=== PATIENT | female | born 1940 | race Asian ===

== ENCOUNTER → 2016-09-10 | Outpatient (CLI) | payer MEDICARE, OTHER ==
--- NOTE | 2016-09-10 10:25 | RADIOLOGY REPORT (SQ) ---
EXAM DESCRIPTION: U/S RETROPERITON LTD COMPLETED DATE/TIME: 09/10/2016 9:42 am REASON FOR STUDY: AAA W/O RUPTURE (I71.4) I71.4 ABDOMINAL AORTIC ANEURYSM, WITHOUT RUPTURE COMPARISON: 09/11/2015 TECHNIQUE: Static and dynamic grayscale images acquired of the aorta and stored on PACs. Selected co raymond Doppler and spectral images recorded. LIMITATIONS: Iliac arteries were obscured by bowel gas. FINDINGS: AORTIC CALIBER MAXIMAL PROXIMAL: 28 x 27 mm. MID: 27 x 27 mm. DISTAL: 37 x 41 mm. ILIAC DIAMETER RIGHT: Not seen cm. LEFT: Not seen cm. OTHER: No other significant finding. IMPRESSION: Stable abdominal aortic aneurysm. TECHNICAL DOCUMENTATION: JOB ID: [id number] [employer]- All Rights Reserved
== END ==
LOC: RAD 08:57
PROVIDERS: ATTEND Surgery
DX: I71.4 Abdominal aortic aneurysm, without rupture (principal)
CPT/HCPCS: 76775

== ENCOUNTER → 2016-11-04 | Outpatient (CLI) | payer MEDICARE, OTHER ==
--- NOTE | 2016-11-04 17:12 | WOMENS IMAGING REPORT ---
EXAM DESCRIPTION: 3D SCREENING MAMMO BILAT COMPLETED DATE/TIME: 11/04/2016 9:53 am REASON FOR STUDY: ROUTINE SCREENING; Z12.31 COMPARISON: Multiple since 2009 TECHNIQUE: Standard craniocaudal and mediolateral oblique views of each breast recorded using digita l acquisition and breast tomosynthesis. LIMITATIONS: None. FINDINGS: Findings present which are benign by mammographic criteria. No suspicious masses, calcifi cations or architectural distortion. Pertinent benign findings: Benign intramammary lymph nodes and nodules. Benign bilateral breast pare nchymal calcifications. Read with the assistance of CAD. .[facility] - R2 Cenova Version 1.3 .[facility] Imaging - R2 Cenova Version 1.3 .[facility] Imaging - R2 Cenova Version 2.4 .[facility] [place]2 Cenova Version 2.4 .[facility] - R2 Manager Of Medical Version 9.2 Benign mammographic findings may include one or more of the following: Smooth masses, popcorn/rim/co arse calcifications, asymmetries, post-procedure changes, and lesions with long-standing stability. IMPRESSION: BENIGN MAMMOGRAPHIC FINDINGS. BIRADS 2 BREAST DENSITY: c. The breasts are heterogeneously dense, which may obscure small masses. BIRAD: 2 BENIGN FINDING(S) RECOMMENDATION: RECOMMENDATION: ROUTINE SCREENING Please continue bilateral screening tomosynthesis in October 2017 COMMENT: The patient has been notified of the results by letter per SA requirements. Additional no tification policies are in place for contacting patient with suspicious or incomplete findings. Quality ID #225: The [employer] recommends an annual screening mammogram for women aged 40 years or over. This facility utilizes a reminder system to ensure that all patients receive reminder letters, and/or direct phone calls for appointments. This includes reminders for routine scr eening mammograms, diagnostic mammograms, or other Breast Imaging Interventions when appropriate. Th is patient will be placed in the appropriate reminder system. The [employer] (ACR) has developed recommendations for screening MRI of the breast s in certain patient populations, to be used in conjunction with mammography. Breast MRI surveillanc e may be appropriate for women with more than 20% lifetime risk of developing breast cancer as deter mined by genetic testing, significant family history of the disease, or history of mantle radiation f or Hodgkins Disease. ACR Practice Guidelines 2008. DBT Technology DBT is a type of tomographic mammography. With conventional mammography, overlapping breast tissue ma y make lesions difficult to detect, even with good compression. DBT uses an x-ray tube that rotates a round the breast, taking images at different angles. These images are then combined to create thin sl ices of the breast that the radiologist can view as a 3D reconstruction. The [employer] unit can perform full-field digital mammograms (2D imaging); or DBT (3D imaging); or both, in a combination mode that quickly performs both the mammogram and the tomosynthesis scan while the breast is still compressed. PQRS 6045F: Fluoroscopic imaging is not utilized for breast tomosynthesis. TECHNICAL DOCUMENTATION: FINDING NUMBER: (1) ASSESSMENT: (1) JOB ID: [id number] [employer]- All Rights Reserved
== END ==
LOC: WI 08:55
PROVIDERS: ATTEND Family Medicine
DX: Z12.31 Encounter for screening mammogram for malignant neoplasm of breast (principal)
CPT/HCPCS: 77063; G0202; 77067

== ENCOUNTER → 2017-02-08 | Outpatient (CLI) | payer MEDICARE, OTHER | LOC: OD 14:58 | PROVIDERS: ATTEND Podiatrist Foot Surgery | DX: M10.071 Idiopathic gout, right ankle and foot (principal) | CPT/HCPCS: 36415; 84550 ==

== ENCOUNTER → 2017-03-16 | Outpatient (CLI) | payer MEDICARE, OTHER ==
[2017-03-16 10:01] LABS: HEMATOCRIT 36.2 % (36.0-47.0); HEMOGLOBIN 11.7 g/dL (12.0-15.5); MEAN CORPUSCULAR HEMOGLOBIN 25.2 pg (27.0-33.4); MEAN CORPUSCULAR HGB CONC 32.3 g/dL (32.0-36.0); MEAN CORPUSCULAR VOLUME 78 fl (80-97); PLATELET COUNT 117 10^3/uL (150-450); RED BLOOD COUNT 4.63 10^6/uL (3.72-5.28); RED CELL DISTRIBUTION WIDTH 17.7 % (11.5-14.0); WHITE BLOOD COUNT 5.2 10^3/uL (4.0-10.5)
[2017-03-16 10:10] LABS: APPEARANCE,URINE CLEAR; BILIRUBIN,URINE NEGATIVE (NEGATIVE); COLOR,URINE YELLOW; GLUCOSE, URINE NEGATIVE (NEGATIVE); KETONES,URINE NEGATIVE (NEGATIVE); LEUKOCYTE ESTERASE,URINE NEGATIVE (NEGATIVE); NITRITE,URINE NEGATIVE (NEGATIVE); PROTEIN,URINE NEGATIVE (NEGATIVE); URINE SPECIFIC GRAVITY 1.014
[2017-03-16 10:28] LABS: ANION GAP 11 (5-19); BLOOD UREA NITROGEN 21 mg/dL (7-20); CALCIUM 9.9 mg/dL (8.4-10.2); CARBON DIOXIDE 28 mmol/L (22-30); CHLORIDE 105 mmol/L (98-107); GLUCOSE 123 mg/dL (75-110); MAGNESIUM 1.6 mg/dL (1.6-2.3); POTASSIUM 4.5 mmol/L (3.6-5.0); SODIUM 143.6 mmol/L (137-145)
== END ==
LOC: OD 08:55
PROVIDERS: ATTEND Internal Medicine Nephrology
DX: I10 Essential (primary) hypertension (principal); E11.9 Type 2 diabetes mellitus without complications
CPT/HCPCS: 36415; 80048; 81001; 83735; 84443; 85027

== ENCOUNTER → 2018-04-07 | Outpatient (CLI) | payer MEDICARE, OTHER ==
--- NOTE | 2018-04-07 16:10 | RADIOLOGY REPORT (SQ) ---
EXAM DESCRIPTION: U/S RETROPERITON LTD COMPLETED DATE/TIME: 04/07/2018 3:21 pm REASON FOR STUDY: AAA (I71.4), HEPATOCELLULAR CARCINOMA (C22.0), HTN (I10) I71.4 ABDOMINAL AORTIC A NEURYSM, WITHOUT RUPTURE C22.0 LIVER CELL CARCINOMA E11.9 TYPE 2 DIABETES MELLITUS WITHOUT COMPLICA TIONS COMPARISON: 09/10/2016 TECHNIQUE: Static and dynamic grayscale images acquired of the aorta and stored on PACs. Selected co raymond Doppler and spectral images recorded. LIMITATIONS: None. FINDINGS: AORTIC CALIBER MAXIMAL PROXIMAL: 2.5 x 2.8 cm. MID: 2.0 x 2.2 cm. DISTAL: 3.1 x 4.0 cm. ILIAC DIAMETER RIGHT: Not visualized. LEFT: Not visualized. OTHER: No other significant finding. IMPRESSION: 3.1 x 4 cm infrarenal abdominal aortic aneurysm. No significant change in size. COMMENT: Aortic aneurysm imaging followup: 4.0-4.4 cm Every 12 months, vascular consultation recommended *Based upon the Society for Vascular Surgery Guidelines: J Vasc Surg. 2009 Oct;50(4 Suppl):S2-49 *For aortas of maximum diameter of 2.6-2.9 cm meeting the criteria for AAA (?1.5 x proximal normal se gment) TECHNICAL DOCUMENTATION: JOB ID: [id number] [employer]- All Rights Reserved Reading location - IP/workstation name: [email or web address]
== END ==
LOC: RAD 13:17
PROVIDERS: ATTEND Internal Medicine Cardiovascular Disease
DX: I71.4 Abdominal aortic aneurysm, without rupture (principal); C22.0 Liver cell carcinoma; E11.9 Type 2 diabetes mellitus without complications; E78.49 Other hyperlipidemia
CPT/HCPCS: 76775

== ENCOUNTER → 2018-06-01 | Outpatient (CLI) | payer MEDICARE, OTHER ==
--- NOTE | 2018-06-01 12:11 | WOMENS IMAGING REPORT ---
EXAM DESCRIPTION: 3D SCREENING MAMMO BILAT COMPLETED DATE/TIME: 06/01/2018 9:39 am REASON FOR STUDY: Z12.31 ROUTINE 3D BILATERAL SCREENING Z12.31 ENCNTR SCREEN MAMMOGRAM FOR MALIGNAN T NEOPLASM OF CASSIE COMPARISON: [id number] TECHNIQUE: Standard craniocaudal and mediolateral oblique views of each breast recorded using digita l acquisition and breast tomosynthesis. LIMITATIONS: None. FINDINGS: No masses, calcifications or architectural distortion. No areas of suspicion. Read with the assistance of CAD. .[facility] - R2 Cenova Version 1.3 .[facility] Imaging - R2 Cenova Version 2.1 .[facility] Imaging - R2 Cenova Version 2.4 .[facility] [place] Cenova Version 2.4 .[facility] - R2 Otolaryngology Nurse Version 9.2 IMPRESSION: NORMAL MAMMOGRAM. BIRADS 1. BREAST DENSITY: b. There are scattered areas of fibroglandular density. BIRAD: 1 NEGATIVE RECOMMENDATION: ROUTINE SCREENING COMMENT: The patient has been notified of the results by letter per SA requirements. Additional no tification policies are in place for contacting patient with suspicious or incomplete findings. Quality ID #225: The [employer] recommends an annual screening mammogram for women aged 40 years or over. This facility utilizes a reminder system to ensure that all patients receive reminder letters, and/or direct phone calls for appointments. This includes reminders for routine scr eening mammograms, diagnostic mammograms, or other Breast Imaging Interventions when appropriate. Th is patient will be placed in the appropriate reminder system. The [employer] (ACR) has developed recommendations for screening MRI of the breast s in certain patient populations, to be used in conjunction with mammography. Breast MRI surveillanc e may be appropriate for women with more than 20% lifetime risk of developing breast cancer as deter mined by genetic testing, significant family history of the disease, or history of mantle radiation f or Hodgkins Disease. ACR Practice Guidelines 2008. DBT Technology DBT is a type of tomographic mammography. With conventional mammography, overlapping breast tissue ma y make lesions difficult to detect, even with good compression. DBT uses an x-ray tube that rotates a round the breast, taking images at different angles. These images are then combined to create thin sl ices of the breast that the radiologist can view as a 3D reconstruction. The [employer] unit can perform full-field digital mammograms (2D imaging); or DBT (3D imaging); or both, in a combination mode that quickly performs both the mammogram and the tomosynthesis scan while the breast is still compressed. PQRS 6045F: Fluoroscopic imaging is not utilized for breast tomosynthesis. TECHNICAL DOCUMENTATION: FINDING NUMBER: (1) ASSESSMENT: (1) JOB ID: [id number] [employer]- All Rights Reserved Reading location - IP/workstation name: [email or web address] LOAN OFFICER [email or web address]
== END ==
LOC: WI 09:18
PROVIDERS: ATTEND Family Medicine
DX: Z12.31 Encounter for screening mammogram for malignant neoplasm of breast (principal)
CPT/HCPCS: 77063; 77067

== ENCOUNTER → 2018-09-08 | Outpatient (CLI) | payer MEDICARE, OTHER ==
--- NOTE | 2018-09-08 11:13 | RADIOLOGY REPORT (SQ) ---
EXAM DESCRIPTION: U/S RETROPERITON LTD COMPLETED DATE/TIME: 09/08/2018 10:44 am REASON FOR STUDY: AAA I71.4 ABDOMINAL AORTIC ANEURYSM, WITHOUT RUPTURE COMPARISON: 04/07/2018 TECHNIQUE: Static and dynamic grayscale images acquired of the aorta and stored on PACs. Selected co raymond Doppler and spectral images recorded. LIMITATIONS: None. FINDINGS: AORTIC CALIBER MAXIMAL PROXIMAL: 2.9 x 2.2 cm. MID: 2.3 x 2.0 cm. DISTAL: 3.6 x 4.0 cm. ILIAC DIAMETER RIGHT: Not visualized. LEFT: Not visualized. OTHER: No other significant finding. IMPRESSION: 3.6 x 4.0 cm infrarenal abdominal aortic aneurysm. There is been a slight increase in s ize since prior ultrasound although this could represent sampling difference. COMMENT: Aortic aneurysm imaging followup: 4.0-4.4 cm Every 12 months, vascular consultation recommended *Based upon the Society for Vascular Surgery Guidelines: J Vasc Surg. 2009 Oct;50(4 Suppl):S2-49 *For aortas of maximum diameter of 2.6-2.9 cm meeting the criteria for AAA (?1.5 x proximal normal se gment) TECHNICAL DOCUMENTATION: JOB ID: [id number] [employer]- All Rights Reserved Reading location - IP/workstation name: [email or web address]
== END ==
LOC: RAD 09:35
PROVIDERS: ATTEND Surgery
DX: I71.4 Abdominal aortic aneurysm, without rupture (principal)
CPT/HCPCS: 76775

== ENCOUNTER → 2019-09-13 | Outpatient (CLI) | payer MEDICARE, OTHER ==
--- NOTE | 2019-09-13 11:43 | RADIOLOGY REPORT (SQ) ---
EXAM DESCRIPTION: U/S RETROPERITON LTD IMAGES COMPLETED DATE/TIME: 09/13/2019 10:09 am REASON FOR STUDY: I71.4 ABDOMINAL AORTIC ANEURYSM, WITHOUT RUPTURE I71.4 ABDOMINAL AORTIC ANEURYSM, WITHOUT RUPTURE COMPARISON: 09/08/2018 TECHNIQUE: Static and dynamic grayscale images acquired of the aorta and stored on PACs. Selected co raymond Doppler and spectral images recorded. LIMITATIONS: None. FINDINGS: AORTIC CALIBER MAXIMAL PROXIMAL: 2.5 x 2.7 cm. MID: 3.6 x 4.0 cm. DISTAL: 3.5 x 3.5 cm. ILIAC DIAMETER RIGHT: Nonvisualized due to body habitus. LEFT: Nonvisualized due to body habitus. OTHER: No other significant finding. IMPRESSION: Mid abdominal aortic aneurysm measuring up to 4.0 cm, stable. Follow-up as below. COMMENT: Aortic aneurysm imaging followup: 4.0-4.4 cm Every 12 months, vascular consultation recommended *Based upon the Society for Vascular Surgery Guidelines: J Vasc Surg. 2009 Oct;50(4 Suppl):S2-49 *For aortas of maximum diameter of 2.6-2.9 cm meeting the criteria for AAA (?1.5 x proximal normal se gment) TECHNICAL DOCUMENTATION: JOB ID: [id number] 2010 [employer]- All Rights Reserved Reading location - IP/workstation name: [email or web address]
== END ==
LOC: RAD 08:57
PROVIDERS: ATTEND Surgery
DX: I71.4 Abdominal aortic aneurysm, without rupture (principal)
CPT/HCPCS: 76775

== ENCOUNTER 2020-02-14 21:49 | Inpatient (IN) | payer MEDICARE, OTHER ==
[2020-02-14 22:19] LABS: ABSOLUTE LYMPHOCYTES (AUTO) 0.3 10^3/uL (0.5-4.7); ABSOLUTE NEUT (AUTO) 3.1 10^3/uL (1.7-8.2); BASOPHILS % (AUTO) 0.5 % (0-2); EOSINOPHILS % (AUTO) 0.8 % (0-6); HEMOGLOBIN 11.2 g/dL (12.0-15.5); INTERNATIONAL RATION (INR) 1.13; MEAN CORPUSCULAR HEMOGLOBIN 30.3 pg (27.0-33.4); MEAN CORPUSCULAR HGB CONC 32.9 g/dL (32.0-36.0); MEAN CORPUSCULAR VOLUME 92 fl (80-97); MONOCYTES % (AUTO) 1.1 % (3-13); PROTHROMBIN TIME 14.8 SEC (11.4-15.4); RED CELL DISTRIBUTION WIDTH 18.2 % (11.5-14.0); SEGMENTED NEUTROPHILS % (AUTO) 88.6 % (42-78); TOTAL CELLS COUNTED % (AUTO) 100 %; WHITE BLOOD COUNT 3.5 10^3/uL (4.0-10.5)
[2020-02-14 22:23] LABS: VENOUS BLOOD BASE EXCESS -1.9 mmol/L; VENOUS BLOOD PH 7.34 (7.30-7.42)
[2020-02-14 22:30] LABS: ALBUMIN 3.8 g/dL (3.5-5.0); ALKALINE PHOSPHATASE 139 U/L (38-126); ANION GAP 8 (5-19); ASPARTATE AMINO TRANSFERASE 26 U/L (14-36); BILIRUBIN,DIRECT 0.2 mg/dL (0.0-0.4); BILIRUBIN,TOTAL 0.9 mg/dL (0.2-1.3); BLOOD UREA NITROGEN 16 mg/dL (7-20); CALCIUM 9.1 mg/dL (8.4-10.2); CARBON DIOXIDE 28 mmol/L (22-30); CHLORIDE 101 mmol/L (98-107); GLUCOSE 178 mg/dL (75-110); POTASSIUM 3.7 mmol/L (3.6-5.0); TOTAL PROTEIN 7.3 g/dL (6.3-8.2)
[2020-02-14 22:45] LABS: PLATELET COUNT 54 10^3/uL (150-450)
[2020-02-14] MEDS ORDERED: AZITHROMYCIN INJ 500 MG VIAL IV ONE (22:51)
--- NOTE | 2020-02-14 22:53 | ER Document Report ---
ED Respiratory Problem <HENNASOFY - Last Filed: 02/15/20 11:33> - General TRAVEL OUTSIDE OF THE [place] IN LAST 30 DAYS: No <JAQUELINE MARTIN - Last Filed: 02/16/20 16:23> - General Chief Complaint: Shortness Of Breath Stated Complaint: SHORTNESS OF BREATH Time Seen by Provider: 02/14/20 22:08 Notes: Patient is an 79-year-old female who presents to the emergency department with shortness of breath. Patient's was available for history. Patient started to have shortness of breath today. Patient's also reports that the patient had some chills today. Patient has history of COPD and wears 5 L nasal cannula. EMS arrived and the patient had an oxygen saturation in the 50s. Has been reports that the patient was admitted to [facility] last month. She was just tested for COVID-19, which was negative. She then was subsequently transferred to [facility] for further management. Patient is currently on BiPAP. reports that the patient does not want to have a breathing tube placed down her throat, but if she needs CPR, the patient may receive CPR. Of note, the patient is hard of hearing. She wears hearing aids. (JAQUELINE MARTIN) - Related Data Allergies/Adverse Reactions: gabapentin Adverse Reaction (Verified 02/14/20 22:46) Past Medical History - General Information source: Relative - Social History Smoking Status: Former Smoker Frequency of alcohol use: None Drug Abuse: None Family History: Reviewed & Not Pertinent <JAQUELINE MARTIN - Last Filed: 02/16/20 16:23> Review of Systems - Review of Systems -: Yes ROS unobtainable due to patient's medical condition <JAQUELINE MARTIN - Last Filed: 02/16/20 16:23> Physical Exam <JAQUELINE MARTIN - Last Filed: 02/16/20 16:23> - Vital signs Vitals: Temp Pulse Resp BP Pulse Ox 99.9 F 133 H 29 H 118/69 92 02/14/20 21:49 02/14/20 21:49 02/14/20 21:49 02/14/20 21:49 02/14/20 21:49 - Notes Notes: PHYSICAL EXAMINATION: GENERAL: Appears well, healthy, well-nourished, no acute distress. HEAD: Normocephalic, atraumatic. EYES: PERRL, conjunctiva normal, all extraocular movements intact, sclera nonicteric ENT: Moist mucous membranes. NECK: Supple, no noticeable swelling, redness, rash. Normal range of motion. LUNGS: Equal breath sounds bilaterally and clear to auscultation. No wheezes rales or rhonchi. CARDIOVASCULAR: S1-S2, regular rate, regular rhythm. Radial pulses 2+, normal. ABDOMEN: Normoactive bowel sounds. Soft, nontender, no guarding, no rebound tenderness, and no masses palpated. EXTREMITIES: Normal strength and range of motion, no pitting or edema. No cyanosis. NEUROLOGICAL: Moves all extremities upon command. Strength 5/5 in all extremities. PSYCH: Normal mood, normal affect. SKIN: Warm, dry. No rash, lesions, ulcerations noted. Normal skin turgor. (JAQUELINE MARTIN) Course - Laboratory Results Result Diagrams: 02/14/20 21:55 02/14/20 21:55 <SOFY AGUILLON - Last Filed: 02/15/20 11:33> - Laboratory Results Result Diagrams: 02/16/20 06:09 02/16/20 06:09 Critical Laboratory Results Reviewed: No Critical Results - Radiology Results Critical Radiology Results Reviewed: No Critical Results <JAQUELINE MARTIN - Last Filed: 02/16/20 16:23> - Re-evaluation Re-evalutation: 02/15/20 03:34 Dr. Rabago, the radiologist called me and recommended a CT of the abdomen pelvis with IV contrast, as there was a possible fluid collection or abscess on the CT a of the chest. He is recommending patient go for another CT of the abdomen pelvis with IV contrast. There is no pulmonary emboli noted. I then spoke with Dr. Carr for possible admission. 02/15/20 05:31 Spoke with [facility] transfer center, the patient now has an NSTEMI. Awaiting callback from the hospitalist. 02/15/20 05:57 Dr. Elias, the hospitalist at [facility]. At this time, they are on regional management. They state that they cannot take the patient at this time, but recommend follow-up with the sales promotion representative here. She reports that the imaging study that was done there a month ago showed gallbladder sludge and emphysema cholecystitis, which was also found here. 02/15/20 06:[address] Garcia, the sales promotion representative educational psychology teacher. He states that since the patient is not having chest pain, the elevated troponin is most likely due to her cholecystitis. Will call daytime hospitalist for admission. Throughout the night, have called multiple facilities for other patients and other facilities are currently on regional management. 02/15/20 07:[address] Mitchell, hospitalist. He is concerned about the patient's cholecystitis and with the plan is for the patient. He would like me to call the on-call GI or general surgery physician at [facility] to see what the plan is. 02/15/20 08:08 I called [facility] transfer center. They will call the team that was covering the patient's case. Will await callback from them. 02/15/20 08:29 Dr. Viola Velázquez, Hospitalist from [facility]. The surgical team did not deem the patient a surgical candidate due to her age and co-morbidities. Perc otto was done in August. 02/15/20 09:[address] Villatoro, he states that the patient is not a surgical candidate, but he will evaluate the patient. I also spoke with Dr. Mitchell, the hospitalist doctor. He will evaluate the patient and based off of their assessments, they will speak with TERA Arreola in regards to what the disposition will be for the patient. Report given to TERA Arreola. ([facility] ) - Vital Signs Vital signs: Temp Pulse Resp BP Pulse Ox 98.7 F 95 17 120/51 L 98 02/16/20 11:42 02/16/20 14:00 02/16/20 11:42 02/16/20 11:42 02/16/20 11:42 - Laboratory Results Laboratory Results Interpreted: 02/14/20 02/14/20 02/14/20 21:55 21:55 21:55 WBC 3.5 L RBC 3.70 L Hgb 11.2 L Hct 34.0 L RDW 18.2 H Plt Count 54 L Lymph % (Auto) 9.0 L Ferry % (Auto) 1.1 L Absolute Lymphs (auto) 0.3 L Absolute Monos (auto) 0.0 L Seg Neutrophils % 88.6 H Sodium 136.8 L Glucose 178 H Lactic Acid 2.9 H Alkaline Phosphatase 139 H NT-Pro-B Natriuret Pep 02/15/20 02/15/20 04:22 04:22 WBC RBC Hgb Hct RDW Plt Count Lymph % (Auto) Ferry % (Auto) Absolute Lymphs (auto) Absolute Monos (auto) Seg Neutrophils % Sodium Glucose Lactic Acid 2.4 H Alkaline Phosphatase NT-Pro-B Natriuret Pep 756 H - EKG Interpretation by Me Additional EKG results interpreted by me: 02/14/20 Sinus tachycardia. Rate 133. SD 144; QRS 74; QT 288; QTc 429. No ST elevations or depressions noted. Previous EKG for comparison. (JAQUELINE MARTIN) Discharge - Discharge Admitting Provider: Paula (Hospitalist) Unit Admitted: IMCU <SOFY AGUILLON - Last Filed: 02/15/20 11:33> <JAQUELINE MARTIN - Last Filed: 02/16/20 16:23> - Discharge Clinical Impression: NSTEMI (non-ST elevated myocardial infarction), Cholecystitis Condition: Stable Disposition: ADMITTED INPATIENT
[2020-02-14 22:58] LABS: APPEARANCE,URINE CLEAR; BILIRUBIN,URINE NEGATIVE (NEGATIVE); COLOR,URINE STRAW; GLUCOSE, URINE NEGATIVE (NEGATIVE); KETONES,URINE NEGATIVE (NEGATIVE); PROTEIN,URINE NEGATIVE (NEGATIVE); URINE SPECIFIC GRAVITY 1.013; UROBILINOGEN,URINE NEGATIVE mg/dL (<2.0)
[2020-02-14] MEDS ORDERED: CEFTRIAXONE 1 GM/D5W RTU 1 GM/50 ML RTUPB IV ONE (23:00)
--- NOTE | 2020-02-14 23:05 | RADIOLOGY REPORT (SQ) ---
CHEST X-RAY 1 VIEW on 02/14/2020 at 10:20 PM CLINICAL INDICATION: Shortness of breath COMPARISON: None FINDINGS: Cardiomegaly is noted. There is a small right pleural effusion. There are bilateral interstitial opacities consistent with edema or atypical pneumonia and differential diagnosis would include viral infections. This may be superimposed on chronic interstitial changes. Vascular calcification is noted in the aorta. Hilar and mediastinal contours are within normal limits. IMPRESSION: Bilateral interstitial opacities consistent with edema or atypical pneumonia with small right pleural effusion.
[2020-02-14 23:40] LABS: ARTERIAL BLOOD BASE EXCESS -1.6 mmol/L; ARTERIAL BLOOD FIO2 30%; ARTERIAL BLOOD H2CO3 1.06 mmol/L (1.05-1.35); ARTERIAL BLOOD HCO3 22.4 mmol/L (20-24); ARTERIAL BLOOD O2 SATURATION 96.6 % (94-98); ARTERIAL BLOOD PCO2 35.3 mmHg (35-45); ARTERIAL BLOOD PH 7.42 (7.35-7.45); ARTERIAL BLOOD PO2 84.7 mmHg (80-100); ARTERIAL BLOOD TOTAL CO2 23.5 mmol/L (21-25)
--- NOTE | 2020-02-15 02:44 | RADIOLOGY REPORT (SQ) ---
CT angiogram chest with contrast on 02/15/2020 at 1:53 AM CLINICAL INDICATION: Shortness of breath TECHNIQUE: Multiple axial images are obtained throughout the chest following the administration of IV contrast. Computer generated 3D reconstructions/MIPS were performed. This exam was performed according to our departmental dose-optimization program, which includes automated exposure control, adjustment of the mA and/or kV according to patient size and/or use of iterative reconstruction technique. Total DLP is 722.11 mGy*cm. COMPARISON: None FINDINGS: Coronary artery calcifications and other vascular calcifications are noted. There is no thoracic aortic aneurysm or dissection. There are a few scattered radiopaque densities in the liver, please correlate with history if the patient has history of any prior embolization procedure. Pneumobilia is noted. There is partially imaged apparent abnormal gallbladder with mucosal enhancement and gallbladder wall thickening. There is also partially imaged air and fluid collection along the caudate lobe of the liver. This could be a loop of bowel in an unusual position but cannot exclude partially imaged abscess. Would recommend follow-up CT of the abdomen and pelvis with contrast to better evaluate the upper abdomen. There is a slightly irregular contour of the liver suggesting changes of cirrhosis. Mild splenomegaly is noted with the spleen measuring at least 15.3 cm in greatest [id number] length. Limited visualized upper abdomen is otherwise unremarkable. There is a small right pleural effusion. There is no left pleural effusion or pericardial effusion. There is no thoracic adenopathy by CT size criteria. There are no filling defects within the pulmonary arteries to suggest pulmonary embolus. Emphysematous changes of the lungs are noted. There is some bronchiectasis in the lung bases. There are reticular interstitial opacities in the lung bases that may all be related to chronic underlying interstitial lung disease although be difficult to exclude component of superimposed mild edema. Degenerative changes are noted in the spine. IMPRESSION: 1. No evidence of pulmonary embolus. 2. Very small right pleural effusion with findings favored to represent chronic underlying interstitial lung disease in the lung bases although cannot exclude component of mild edema. 3. Emphysema. 4. Changes of cirrhosis and splenomegaly partially imaged in the upper abdomen. 5. Abnormal appearance of a partially imaged gallbladder, consider ultrasound follow-up. 6. Partially imaged air and fluid collection along the caudate lobe of the liver. While this could represent a loop of bowel in an unusual location, abscess is of concern. Would recommend follow-up CT of the abdomen and pelvis ideally with contrast to better evaluate.
--- NOTE | 2020-02-15 05:06 | RADIOLOGY REPORT (SQ) ---
EXAM DESCRIPTION: Site: CT ABD/PELVIS WITH IV ONLY RP: CT ABDOMEN PELVIS WITH IV CONTRAST 02/15/2020 at 0402 CLINICAL HISTORY: 79 years Female; follow up on possible fluid collection; (CT chest 02/15/2020) TECHNIQUE: CT of the abdomen and pelvis using intravenous contrast. All CT scans at this facility use dose modulation, iterative reconstruction, and/or weight based dosing when appropriate to reduce radiation dose to as low as reasonably achievable. COMPARISON: CT chest 02/15/2020 at 0152. FINDINGS: Lung bases are similar to exam performed earlier. Abdomen: Stomach: No significant distention or surrounding edema. There is a 4 cm wide duodenal diverticulum projecting from the junction of the 2nd and 3rd portions. No adjacent edema. Fluid and air in the duodenum corresponds to the collection partially visualized on the CT. Liver:No focal lesions. No intrahepatic ductal distention. Gallbladder: There is air in the fundus of the gallbladder, mild wall enhancement and thickening. Pancreas:Within normal limits Spleen:Within normal limits Right kidney:No hydronephrosis. No focal lesion. Left kidney: No hydronephrosis. 2.5 cm exophytic cyst. Adrenal glands:Within normal limits Vascular structures: Abdominal aortic aneurysm 4 cm AP by 3.8 cm LR involving a 5.2 cm long segment of the distal abdominal aorta. There is also extensive calcific and low-density plaque throughout the aorta and in multiple branches. No major branch occlusion. Multiple portosystemic varices are noted. No portal vein thrombosis. Pelvis: Small bowel:No significant distention. Appendix:Within normal limits Colon:No distention or acute pericolonic edema. No free intraperitoneal fluid or air. Bones: Chronic degenerative changes of the lumbar spine. No acute bone findings. Bladder: Lowry catheter is in place. No pelvic mass or adenopathy. IMPRESSION: 1. Abnormal gallbladder, suspicious for acute cholecystitis. The air raises concern for emphysematous cholecystitis. 2. Large duodenal diverticulum, but no associated acute inflammatory changes. (Questionable fluid collection on CTA chest corresponds to fluid in the duodenum) 3. Varices, consistent with portal hypertension 4. 4 cm distal abdominal aortic aneurysm. Recommend follow-up every 12 months and vascular consultation.
[2020-02-15] MEDS ORDERED: ONDANSETRON HCL INJ/PF 4 MG/2 ML SDV IV PRN (11:19)
[2020-02-15] MEDS ORDERED: MAG HYDROX/AL HYDROX/SIMETH SUSP 30 ML UDCUP PO PRN (11:19)
[2020-02-15] MEDS ORDERED: FUROSEMIDE INJ/PF 40 MG/4 ML SDV IV ONE (11:23)
[2020-02-15] MEDS ORDERED: METHYLPREDNISOLONE INJ 40 MG/1 ML SDV IV ONE (11:23)
[2020-02-15] MEDS ORDERED: LIDOCAINE 5% (700 MG) TRANSDERMAL ADH..PATCH TP PRN (11:24)
[2020-02-15] MEDS ORDERED: (PENDING PHARMACY ID) (Diclofenac Sodium [Diclofenac Sodium] 100 GM Gel..Gram.) TOP PRN (11:24)
[2020-02-15] MEDS ORDERED: MECLIZINE HCL 25 MG TABLET PO PRN (11:24)
[2020-02-15] MEDS ORDERED: ACETAMINOPHEN 325 MG TABLET PO PRN (12:28)
[2020-02-15] MEDS ORDERED: DEXTROSE 50%-WATER 25 GM/50 ML DISP.SYRIN IV PRN ×2 (13:05)
[2020-02-15] MEDS ORDERED: GLUCAGON,HUMAN RECOMB 1 MG INJ SUBCUT PRN (13:05)
[2020-02-15] MEDS ORDERED: DEXTROSE 40% GEL 15 GM TUBE PO PRN ×2 (13:05)
[2020-02-15] MEDS ORDERED: DEXTROSE 5%-NORMAL SALINE 1,000 ML IV PRN (13:06)
--- NOTE | 2020-02-15 13:16 | PDOC CONSULTATION ---
Consultation Consult Date: 02/15/20 Provider Consulted: JASPAL WELSH Consult reason:: Gallbladder abnormality History of Present Illness Admission Date/PCP: 02/15/20 12:35 EMMA DAY Patient complains of: Patient initially presented to the ER with shortness of breath. History of Present Illness: NOLVIA SCRUGGS is a 79 year old female with multiple medical issues including significant pulmonary and cardiac problems that the family has been told adamantly that she cannot undergo any type of surgical procedure. Patient apparently had a fall on the right side and was hospitalized at [facility] and was noted at that time with a gallbladder abnormality with thickened gallbladder wall with air but they did not feel that it was an acute process and no intervention was performed at that time although she did have a presenting fevers. History is very difficult to obtain from her and I was able to obtain history with her at the bedside. It does appear that she has been experiencing right-sided abdominal discomfort. She has been eating with no emesis and she has not been experiencing fevers. She has a history of hepatocellular carcinoma in the past. Social History Smoking Status: Former Smoker Frequency of Alcohol Use: None Hx Recreational Drug Use: No Hx Prescription Drug Abuse: No Family History Parental Family History Reviewed: No Children Family History Reviewed: No Sibling(s) Family History Reviewed.: No Medication/Allergy Home Medications: Arformoterol Tartrate [Brovana Inhalation Solution 15 mcg/2 mL] 15 mcg NEB RTBID 02/15/20 Budesonide [Pulmicort] 0.5 mg NEB RTBID 02/15/20 Calcium Citrate/Vitamin D3 [Citracal-D3 200Mg-250 Unit Tab] 1 tab PO DAILY 02/15/20 Cholecalciferol (Vitamin D3) [Vitamin D3 1000 Unit Tablet] 1,000 units PO DAILY 02/15/20 Cyanocobalamin (Vitamin B-12) [Vitamin B12] 2,500 mcg PO DAILY 02/15/20 Diclofenac Sodium 2 gr TOP TIDP PRN 02/15/20 Ferrous Sulfate [Ferosul] 325 mg PO DAILY 02/15/20 Fluocinonide [Lidex-E 0.05% Cream 15 gm] 1 applic TOP BIDP PRN 02/15/20 Fluticasone/Umeclidin/Vilanter [Trelegy 100-62.5-25 Mcg Ellipta 14 Dose/Dpi] 1 puff IH DAILY 02/15/20 Latanoprost [Xalatan 0.005% Oph Soln 2.5 ml] 1 drop OU QHS 02/15/20 Lidocaine [Lidoderm 5% (700 mg) Transdermal Patch] 1 patch TD Q12HP PRN 02/15/20 Meclizine HCl 12.5 mg PO Q6HP PRN 02/15/20 Pantoprazole Sodium [Protonix] 40 mg PO DAILY 02/15/20 Prednisone 10 mg PO DAILY 02/15/20 Simvastatin [Zocor 40 mg Tablet] 40 mg PO QHS 02/15/20 Allergies/Adverse Reactions: gabapentin Adverse Reaction (Verified 02/14/20 22:46) Physical Exam Vital Signs: Temp Pulse Resp BP Pulse Ox 99.4 F 133 H 24 H 124/64 96 02/15/20 03:30 02/14/20 21:49 02/15/20 07:30 02/15/20 07:30 02/15/20 07:30 Intake & Output 02/14/20 02/15/20 02/16/20 06:59 06:59 06:59 Intake Total 300 Output Total 1100 Balance 300 -1100 Weight 89.1 kg General appearance: PRESENT: no acute distress, cooperative - But really unable to provide a detailed history. Eye exam: PRESENT: conjunctiva pink Respiratory exam: PRESENT: clear to auscultation laney Cardiovascular exam: PRESENT: RRR GI/Abdominal exam: PRESENT: other - Soft, obese, focal tenderness to palpation in the right upper quadrant in the subcostal region without peritoneal signs. She has no tenderness at her ribs nor her flank nor at her right lateral abdomen and there are no bruising nor evidence of trauma in this area. Neurological exam: PRESENT: awake Results Laboratory Results: 02/14/20 21:55 02/14/20 21:55 02/14/20 02/14/20 02/14/20 21:55 21:55 21:55 WBC 3.5 L RBC 3.70 L Hgb 11.2 L Hct 34.0 L MCV 92 MCH 30.3 MCHC 32.9 RDW 18.2 H Plt Count 54 L Seg Neutrophils % 88.6 H Carbonic Acid HCO3/H2CO3 Ratio ABG pH ABG pCO2 ABG pO2 ABG HCO3 ABG O2 Saturation ABG Base Excess VBG pH 7.34 VBG pCO2 46.0 VBG HCO3 24.0 VBG Base Excess -1.9 FiO2 Sodium 136.8 L Potassium 3.7 Chloride 101 Carbon Dioxide 28 Anion Gap 8 BUN 16 Creatinine 0.86 Est GFR ( Amer) > 60 Glucose 178 H Lactic Acid Calcium 9.1 Total Bilirubin 0.9 AST 26 Alkaline Phosphatase 139 H Total Protein 7.3 Albumin 3.8 Urine Color Urine Appearance Urine pH Ur Specific [place] Urine Protein Urine Glucose (UA) Urine Ketones Urine Blood Urine RBC (Auto) 02/14/20 02/14/20 02/14/20 21:55 22:38 23:27 WBC RBC Hgb Hct MCV MCH MCHC RDW Plt Count Seg Neutrophils % Carbonic Acid 1.06 HCO3/H2CO3 Ratio 21:1 ABG pH 7.42 ABG pCO2 35.3 ABG pO2 84.7 ABG HCO3 22.4 ABG O2 Saturation 96.6 ABG Base Excess -1.6 VBG pH VBG pCO2 VBG HCO3 VBG Base Excess FiO2 30% Sodium Potassium Chloride Carbon Dioxide Anion Gap BUN Creatinine Est GFR ( Amer) Glucose Lactic Acid 2.9 H Calcium Total Bilirubin AST Alkaline Phosphatase Total Protein Albumin Urine Color STRAW Urine Appearance CLEAR Urine pH 5.0 Ur Specific [place] 1.013 Urine Protein NEGATIVE Urine Glucose (UA) NEGATIVE Urine Ketones NEGATIVE Urine Blood NEGATIVE Urine RBC (Auto) 1 02/15/20 02/15/20 04:22 07:44 WBC RBC Hgb Hct MCV MCH MCHC RDW Plt Count Seg Neutrophils % Carbonic Acid HCO3/H2CO3 Ratio ABG pH ABG pCO2 ABG pO2 ABG HCO3 ABG O2 Saturation ABG Base Excess VBG pH VBG pCO2 VBG HCO3 VBG Base Excess FiO2 Sodium Potassium Chloride Carbon Dioxide Anion Gap BUN Creatinine Est GFR ( Amer) Glucose Lactic Acid 2.4 H 2.1 Calcium Total Bilirubin AST Alkaline Phosphatase Total Protein Albumin Urine Color Urine Appearance Urine pH Ur Specific [place] Urine Protein Urine Glucose (UA) Urine Ketones Urine Blood Urine RBC (Auto) 02/14/20 23:06 Blood Blood Culture (PCR) - Final Escherichia Coli 02/14/20 02/15/20 02/15/20 21:55 04:22 04:22 Troponin I 0.019 0.203 NT-Pro-B Natriuret Pep 756 H 02/15/20 08:55 Troponin I 0.174 NT-Pro-B Natriuret Pep Impressions: Chest X-Ray 02/14/20 22:03 IMPRESSION: Bilateral interstitial opacities consistent with edema or atypical pneumonia with small right pleural effusion. Chest/Abdomen CTA 02/15/20 00:23 IMPRESSION: 1. No evidence of pulmonary embolus. 2. Very small right pleural effusion with findings favored to represent chronic underlying interstitial lung disease in the lung bases although cannot exclude component of mild edema. 3. Emphysema. 4. Changes of cirrhosis and splenomegaly partially imaged in the upper abdomen. 5. Abnormal appearance of a partially imaged gallbladder, consider ultrasound follow-up. 6. Partially imaged air and fluid collection along the caudate lobe of the liver. While this could represent a loop of bowel in an unusual location, abscess is of concern. Would recommend follow-up CT of the abdomen and pelvis ideally with contrast to better evaluate. Abdomen/Pelvis CT 02/15/20 03:27 IMPRESSION: 1. Abnormal gallbladder, suspicious for acute cholecystitis. The air raises concern for emphysematous cholecystitis. 2. Large duodenal diverticulum, but no associated acute inflammatory changes. (Questionable fluid collection on CTA chest corresponds to fluid in the duodenum) 3. Varices, consistent with portal hypertension 4. 4 cm distal abdominal aortic aneurysm. Recommend follow-up every 12 months and vascular consultation. Assessment & Plan - Diagnosis (1) Cholecystitis Is this a current diagnosis for this admission?: Yes Plan: I agree with [facility]'s assessment that this gallbladder process is chronic; however, she is symptomatic and and she has focal tenderness in this area along with positive blood culture for E. coli. In light of these findings, I feel strongly that an intervention is indicated. Since she is not a surgical candidate as vehemently stated by her , will have radiology place a cholecystostomy tube. She had one last year for similar sounding gallbladder i ssues. Although it would be ideal for her to have continuity of care at [facility], they are not accepting any patients as transfer. After she has stabilized from her cholecystostomy tube and antibiotic treatment for her bacteremia, patient could potentially be discharged to home with follow-up at [facility]. Patient will be admitted to the hospitalist service with surgery service following along. I will discuss with radiology about the cholecystostomy tube placement. I have had a discussion with patient and her about the procedure and they are well familiar with the procedure and agrees to proceed. They understand that there is risk of bleeding and damage to adjacent structures with the tube placement.
[2020-02-15] MEDS ORDERED: FLUOCINONIDE 0.05% CREAM 15 GM TOP PRN (14:00)
--- NOTE | 2020-02-15 17:27 | PDOC H&P ---
History of Present Illness Admission Date/PCP: 02/15/20 12:35 CRI[address] MCKEON, [facility]- Patient complains of: Chills, abdominal pain, shortness of breath History of Present Illness: I had a very extensive conversation with patient and patient's at bedside. NOLVIA SCRUGGS is a 79 year old female with extensive medical history including hepatocellular cancer [undergoing CyberKnife procedures], cholecystitis last year, emphysema on home oxygen, who presents to the hospital for evaluation of chills shortness of breath. Patient started having the symptoms yesterday. She was noted by her to be hypoxic in the 70s to 80s on her nasal cannula. She was subsequently brought to the hospital. Her noted her having some rash on her thighs yesterday but seems to be gone this morning. Patient complained of some shortness of breath involving and pointed to her neck. In the ambulance, patient received mag, Solu-Medrol and placed on CPAP. In the ER, patient received antibiotics patient underwent imaging which revealed emphysematous cholecystitis. Notably she was on about 1.5 to 2 L nasal cannula during my encounter and stated that her shortness of breath had improved significantly. Has had multiple covid tests in past 2 months all negative last 3 weeks ago. Regarding her emphysematous cholecystitis, patient is having abdominal pain as well as chills. Last year, patient was noted to be having cholecystitis at [facility]. At that time, the try to take out her gallbladder but she had an episode on the surgical table as a result of which the cholecystectomy was forfieted. She subsequently underwent cholecystostomy tube placement and biliary stenting. These were later removed. However she never underwent cholecystectomy. Patient was seen in [facility] last month and was given antibiotics for several days. It is unclear what she was actually treated for with antibiotics but he did also note that she was later treated for C. difficile. They did several imaging and referred patient to [facility] for follow-up. At [facility] last month, they treated her for other issues but also noted her cholecystitis on imaging. tells me that they had considered placing a tube then but decided to hold off due to lack of symptoms. The also expresses to me that the family told him that patient was not a surgical lester te for cholecystectomy due to her comorbid medical/lung issues as well as thrombocytopenia. Past Medical History Cardiac Medical History: Denies: Atrial Fibrillation, Coronary Artery Disease Pulmonary Medical History: Reports: Chronic Obstructive Pulmonary Disease (COPD), Pneumonia Malignancy Medical History: Reports: Liver Cancer Psychiatric Medical History: Denies: Depression Past Surgical History Past Surgical History: Reports: Other - cyberknife procedure to liver Denies: Coronary Artery Bypass Graft Social History Smoking Status: Former Smoker Electronic Cigarette use?: No Last Time Smoked: 25 years ago Frequency of Alcohol Use: None Hx Recreational Drug Use: No Drugs: None Hx Prescription Drug Abuse: No - Advance Directive Resuscitation Status: Full Code Family History Family History: Hypertension Parental Family History Reviewed: Yes Children Family History Reviewed: Yes Sibling(s) Family History Reviewed.: Yes Medication/Allergy Home Medications: Arformoterol Tartrate [Brovana Inhalation Solution 15 mcg/2 mL] 15 mcg NEB RTBID 02/15/20 Budesonide [Pulmicort] 0.5 mg NEB RTBID 02/15/20 Calcium Citrate/Vitamin D3 [Citracal-D3 200Mg-250 Unit Tab] 1 tab PO DAILY 02/15/20 Cholecalciferol (Vitamin D3) [Vitamin D3 1000 Unit Tablet] 1,000 units PO DAILY 02/15/20 Cyanocobalamin (Vitamin B-12) [Vitamin B12] 2,500 mcg PO DAILY 02/15/20 Diclofenac Sodium 2 gr TOP TIDP PRN 02/15/20 Ferrous Sulfate [Ferosul] 325 mg PO DAILY 02/15/20 Fluocinonide [Lidex-E 0.05% Cream 15 gm] 1 applic TOP BIDP PRN 02/15/20 Fluticasone/Umeclidin/Vilanter [Trelegy 100-62.5-25 Mcg Ellipta 14 Dose/Dpi] 1 puff IH DAILY 02/15/20 Latanoprost [Xalatan 0.005% Oph Soln 2.5 ml] 1 drop OU QHS 02/15/20 Lidocaine [Lidoderm 5% (700 mg) Transdermal Patch] 1 patch TD Q12HP PRN 02/15/20 Meclizine HCl 12.5 mg PO Q6HP PRN 02/15/20 Pantoprazole Sodium [Protonix] 40 mg PO DAILY 02/15/20 Prednisone 10 mg PO DAILY 02/15/20 Simvastatin [Zocor 40 mg Tablet] 40 mg PO QHS 02/15/20 Allergies/Adverse Reactions: gabapentin Adverse Reaction (Verified 02/14/20 22:46) Review of Systems Constitutional: PRESENT: chills, fatigue. ABSENT: fever(s) Eyes: ABSENT: visual disturbances Nose, Mouth, and Throat: ABSENT: headache(s) Cardiovascular: PRESENT: edema. ABSENT: chest pain Respiratory: PRESENT: cough - chronic, dyspnea Gastrointestinal: PRESENT: abdominal pain. ABSENT: nausea, vomiting Genitourinary: ABSENT: dysuria Musculoskeletal: ABSENT: back pain Integumentary: ABSENT: diaphoresis Neurological: ABSENT: weakness Endocrine: ABSENT: polyuria Hematologic/Lymphatic: ABSENT: lymphadenopathy Allergic/Immunologic: ABSENT: seasonal rhinorrhea Physical Exam Vital Signs: Temp Pulse Resp BP Pulse Ox 99.4 F 70 20 127/56 H 94 02/15/20 03:30 02/15/20 15:47 02/15/20 14:31 02/15/20 14:31 02/15/20 14:31 Intake & Output 02/14/20 02/15/20 02/16/20 06:59 06:59 06:59 Intake Total 300 Output Total 1100 Balance 300 -1100 Weight 89.1 kg General appearance: PRESENT: no acute distress, cooperative, hard of hearing - very hard of hearing, obese Head exam: PRESENT: normocephalic Eye exam: PRESENT: EOMI Mouth exam: PRESENT: moist Neck exam: PRESENT: JVD Respiratory exam: PRESENT: crackles - Bilateral lower lung hines, symmetrical, unlabored. ABSENT: stridor, tachypnea, wheezes Cardiovascular exam: PRESENT: RRR, +S1, +S2. ABSENT: tachycardia GI/Abdominal exam: PRESENT: soft, tenderness - RUQ. ABSENT: distended, firm, guarding, rebound, rigid Extremities exam: ABSENT: pedal edema Neurological exam: PRESENT: alert, awake, oriented to person, oriented to place, oriented to time, oriented to situation Psychiatric exam: ABSENT: agitated, anxious Focused psych exam: ABSENT: pressured speech Skin exam: ABSENT: jaundice Results Laboratory Results: 02/14/20 21:55 02/14/20 21:55 02/14/20 02/14/20 02/14/20 21:55 21:55 21:55 WBC 3.5 L RBC 3.70 L Hgb 11.2 L Hct 34.0 L MCV 92 MCH 30.3 MCHC 32.9 RDW 18.2 H Plt Count 54 L Seg Neutrophils % 88.6 H Carbonic Acid HCO3/H2CO3 Ratio ABG pH ABG pCO2 ABG pO2 ABG HCO3 ABG O2 Saturation ABG Base Excess VBG pH 7.34 VBG pCO2 46.0 VBG HCO3 24.0 VBG Base Excess -1.9 FiO2 Sodium 136.8 L Potassium 3.7 Chloride 101 Carbon Dioxide 28 Anion Gap 8 BUN 16 Creatinine 0.86 Est GFR ( Amer) > 60 Glucose 178 H Lactic Acid Calcium 9.1 Total Bilirubin 0.9 AST 26 Alkaline Phosphatase 139 H Total Protein 7.3 Albumin 3.8 Urine Color Urine Appearance Urine pH Ur Specific [place] Urine Protein Urine Glucose (UA) Urine Ketones Urine Blood Urine RBC (Auto) 02/14/20 02/14/20 02/14/20 21:55 22:38 23:27 WBC RBC Hgb Hct MCV MCH MCHC RDW Plt Count Seg Neutrophils % Carbonic Acid 1.06 HCO3/H2CO3 Ratio 21:1 ABG pH 7.42 ABG pCO2 35.3 ABG pO2 84.7 ABG HCO3 22.4 ABG O2 Saturation 96.6 ABG Base Excess -1.6 VBG pH VBG pCO2 VBG HCO3 VBG Base Excess FiO2 30% Sodium Potassium Chloride Carbon Dioxide Anion Gap BUN Creatinine Est GFR ( Amer) Glucose Lactic Acid 2.9 H Calcium Total Bilirubin AST Alkaline Phosphatase Total Protein Albumin Urine Color STRAW Urine Appearance CLEAR Urine pH 5.0 Ur Specific [place] 1.013 Urine Protein NEGATIVE Urine Glucose (UA) NEGATIVE Urine Ketones NEGATIVE Urine Blood NEGATIVE Urine RBC (Auto) 1 02/15/20 02/15/20 04:22 07:44 WBC RBC Hgb Hct MCV MCH MCHC RDW Plt Count Seg Neutrophils % Carbonic Acid HCO3/H2CO3 Ratio ABG pH ABG pCO2 ABG pO2 ABG HCO3 ABG O2 Saturation ABG Base Excess VBG pH VBG pCO2 VBG HCO3 VBG Base Excess FiO2 Sodium Potassium Chloride Carbon Dioxide Anion Gap BUN Creatinine Est GFR ( Amer) Glucose Lactic Acid 2.4 H 2.1 Calcium Total Bilirubin AST Alkaline Phosphatase Total Protein Albumin Urine Color Urine Appearance Urine pH Ur Specific [place] Urine Protein Urine Glucose (UA) Urine Ketones Urine Blood Urine RBC (Auto) 02/14/20 23:06 Blood Blood Culture (PCR) - Final Escherichia Coli 02/14/20 02/15/20 02/15/20 21:55 04:22 04:22 Troponin I 0.019 0.203 NT-Pro-B Natriuret Pep 756 H 02/15/20 08:55 Troponin I 0.174 NT-Pro-B Natriuret Pep Impressions: Chest X-Ray 02/14/20 22:03 IMPRESSION: Bilateral interstitial opacities consistent with edema or atypical pneumonia with small right pleural effusion. Chest/Abdomen CTA 02/15/20 00:23 IMPRESSION: 1. No evidence of pulmonary embolus. 2. Very small right pleural effusion with findings favored to represent chronic underlying interstitial lung disease in the lung bases although cannot exclude component of mild edema. 3. Emphysema. 4. Changes of cirrhosis and splenomegaly partially imaged in the upper abdomen. 5. Abnormal appearance of a partially imaged gallbladder, consider ultrasound follow-up. 6. Partially imaged air and fluid collection along the caudate lobe of the liver. While this could represent a loop of bowel in an unusual location, abscess is of concern. Would recommend follow-up CT of the abdomen and pelvis ideally with contrast to better evaluate. Abdomen/Pelvis CT 02/15/20 03:27 IMPRESSION: 1. Abnormal gallbladder, suspicious for acute cholecystitis. The air raises concern for emphysematous cholecystitis. 2. Large duodenal diverticulum, but no associated acute inflammatory changes. (Questionable fluid collection on CTA chest corresponds to fluid in the duodenum) 3. Varices, consistent with portal hypertension 4. 4 cm distal abdominal aortic aneurysm. Recommend follow-up every 12 months and vascular consultation. Assessment and Plan - Diagnosis (1) E coli bacteremia Is this a current diagnosis for this admission?: Yes Plan: Blood cultures quickly came back positive with E. coli. Likely the cause of her chills. This is likely stemming from her emphysematous cholecystitis which has not been acted upon. Ceftriaxone. Await susceptibility results. (2) Emphysematous cholecystitis Is this a current diagnosis for this admission?: Yes Plan: Review the images in PACS, it seems this finding is about similar to what was seen at [facility] last month. Patient is symptomatic. She will require intervention. I have consulted surgery who has evaluated patient and recommends IR placement of cholecystostomy tube given patient reported poor candidacy for surgery, antibiotics and outpatient follow-up with [facility]. We will plan for cholecystostomy tube placement tomorrow. Keep n.p.o. for now. Antiemetics. Slow D5 saline infusion. (3) Dyspnea Qualifiers: Dyspnea type: shortness of breath Qualified Code(s): R06.02 - Shortness of breath; R06.00 - Dyspnea, unspecified; R06.01 - Orthopnea Is this a current diagnosis for this admission?: Yes Plan: Patient seem to have an episode of this. I think it may be stemming from patient's chronic pulmonary diseases including COPD and what looks to be lung fibrosis on chest CT. reports a rash which almost sounds similar to hives so I do wonder if patient had an allergic reaction to something. However the rash on her thighs are gone. Currently not having any wheezing and no stridor. Received steroids. Pepcid every 12. Will monitor. (4) Emphysema of lung Qualifiers: Emphysema type: panlobular Qualified Code(s): J43.1 - Panlobular emphysema Is this a current diagnosis for this admission?: Yes Plan: Has received some steroids but I will hold off on further steroids due to bacteremia. DuoNebs every 6 hours for possible exacerbation. She is notably on Trelegy and low-dose prednisone at home. (5) Pulmonary interstitial fibrosis Is this a current diagnosis for this admission?: Yes Plan: I have reviewed patient's CT image from last month at [facility] on PACS and it appears pretty much identical to her imaging today. I highly doubt that there is any overlying pneumonia. What I see in the imaging is simply a lot of emphysematous lungs and what appears to be chronic fibrotic lung changes. She will continue to follow-up with a fisher seal outpatient. She may have some right heart failure especially with her leg swelling. Gave some Lasix. We will check an echocardiogram. (6) Acute on chronic respiratory failure with hypoxia Is this a current diagnosis for this admission?: Yes Plan: endorses that she did use about 5 L of oxygen at home but he has weaned it down to 3% because she is usually almost 100% on that. Currently she is just on 1 to 2 L nasal cannula in the ER. I have educated him on goal SPO2 being low 90s for patient not high (7) Elevated troponin I level Is this a current diagnosis for this admission?: Yes Plan: Likely type II HI from demand ischemia from episode of hypoxia. EKG shows no new ischemic changes. Peaked at 0.2 then down trended. She denies any chest pain. (8) Chronic liver disease in patient with history of hepatocellular carcinoma Is this a current diagnosis for this admission?: Yes Plan: Has evidence of chronic liver disease possible cirrhosis including portosystemic varices, portal hypertension, thrombocytopenia. Will monitor. Caution with meds. Has had a few sessions of CyberKnife therapy at [facility]. She will continue to follow-up outpatient with her dog behaviorist. (9) Thrombocytopenia Is this a current diagnosis for this admission?: Yes Plan: Likely from chronic liver disease. Will monitor. (10) AAA (abdominal aortic aneurysm) Qualifiers: Presence of rupture: without rupture Qualified Code(s): I71.4 - Abdominal aortic aneurysm, without rupture Is this a current diagnosis for this admission?: Yes Plan: Size does not require intervention currently. Outpatient follow-up. - Time Time Spent with patient: 35 or more minutes Anticipated Discharge Disposition: Home, Self Care Anticipated Discharge Timeframe: within 48 hours
[2020-02-15] MEDS: BUDESONIDE NEB 0.5 MG/2 ML AMPUL NEB SCH (19:51)
[2020-02-15] MEDS: IPRATROPIUM/ALBUTEROL 0.5-2.5 MG/3 ML AMPUL NEB SCH (19:51)
--- NOTE | 2020-02-15 21:29 | EKG REPORT ---
SEVERITY:- NORMAL ECG - SINUS RHYTHM : Confirmed by: Arianne Begum MD 15-Feb-2020 21:28:56
--- NOTE | 2020-02-15 21:31 | EKG REPORT ---
SEVERITY:- OTHERWISE NORMAL ECG - SINUS TACHYCARDIA : Confirmed by: Arianne Begum MD 15-Feb-2020 21:29:41
[2020-02-15] MEDS ORDERED: METHYLPREDNISOLONE INJ 40 MG/1 ML SDV IV SCH (22:00)
--- NOTE | 2020-02-15 22:19 | XCELERA REPORT ---
[address] [address] Transthoracic Echocardiogram Report Name: NOLVIA SCRUGGS Age: 79 yrs Gender: Female : 1940 Patient Status: Inpatient Patient Location: [address] [place] [address] Study Date: 02/15/2020 06:31 PM History: Right sided CHF Height: 60 in Weight: 196 lb BSA: 1.9 m2 Procedure: A complete two-dimensional transthoracic echocardiogram was performed (2D, M-mode, spectral and color flow Doppler). The study was technically difficult with many images being suboptimal in quality. Reason For Study: possible right heart failure Previous Evaluation: No previous studies were available. History: CHF. Ordering Physician: MARAL CANO Performed By: Maite Caldwell Interpretation Summary Left ventricular systolic function is normal. The Ejection Fraction estimate is 60-65% The right ventricular systolic function is normal. There is a mild amount of mitral regurgitation There is mild aortic stenosis There is a mild amount of aortic regurgitation There is a mild amount of tricuspid regurgitation There is moderate pulmonary hypertension by echo There is no pericardial effusion. MMode/2D Measurements & Calculations RVDd: 3.5 cm LVIDd: 4.6 cm FS: 36.0 % Ao root diam: 2.4 cm IVSd: 1.1 cm LVIDs: 3.0 cm EDV(Teich): 99.6 ml Ao root area: 4.4 cm2 LVPWd: 1.2 cm ESV(Teich): 34.2 ml LA dimension: 4.6 cm EF(Teich): 65.6 % LVOT diam: 1.9 cm LVOT area: 2.9 cm2 Doppler Measurements & Calculations MV E max maral: MV P1/2t max maral: Ao V2 max: AI max maral: 129.3 cm/sec 156.3 cm/sec 219.9 cm/sec 178.4 cm/sec MV A max maral: MV P1/2t: 76.5 msec Ao max PG: AI max P.4 cm/sec MVA(P1/2t): 2.9 cm2 19.3 mmHg 12.7 mmHg MV E/A: 1.1 MV dec slope: Ao V2 mean: AI dec slope: 141.8 cm/sec 178.0 cm/sec2 598.5 cm/sec2 Ao mean PG: AI P1/2t: MV dec time: 0.24 sec9.7 mmHg 293.5 msec Ao V2 VTI: 53.4 cm LOVE(I,D): 1.4 cm2 LOVE(V,D): 1.6 cm2 LV V1 max PG: SV(LVOT): 75.3 ml PA V2 max: PI end-d maral: 5.7 mmHg 91.3 cm/sec 141.6 cm/sec LV V1 mean PG: PA max P.8 mmHg 3.3 mmHg LV V1 max: 119.0 cm/sec LV V1 mean: 74.3 cm/sec LV V1 VTI: 25.6 cm TR max maral: AV P1/2t-pr_phl: MV P1/2t-pr_phl: 332.6 cm/sec 311.6 msec 76.5 msec TR max P.2 mmHg Left Ventricle The left ventricle is normal in size. There is moderate concentric left ventricular hypertrophy. Left ventricular systolic function is normal. The Ejection Fraction estimate is 60-65%. Doppler measurements suggest pseudonormalized left ventricular relaxation, which is associated with grade II/IV or mild to moderate diastolic dysfunction. No regional wall motion abnormalities noted. Right Ventricle The right ventricle is mildly dilated. The right ventricular systolic function is normal. Atria The right atrium is normal. The left atrium is mildly dilated. Mitral Valve Calcified mitral apparatus. There is no evidence of mitral valve prolapse. There is a mild amount of mitral regurgitation. Aortic Valve The aortic valve is moderately calcified. The aortic valve is sclerotic and shows some degree of functional abnormality. The aortic valve is not well visualized secondary to technical limitations. There is mild aortic stenosis. Mean PG=10 mm Hg V max= 2.2 m/s LOVE (VTI)=1.54 cm2. There is a mild amount of aortic regurgitation. Tricuspid Valve The tricuspid valve is normal in structure and function. There is no tricuspid stenosis. There is a mild amount of tricuspid regurgitation. Right ventricular systolic pressure is estimated to be elevated at 50-60mmHg. There is moderate pulmonary hypertension by echo. Pulmonic Valve The pulmonic valve is not well visualized. There is no pulmonic valvular stenosis. There is a mild to moderate amount of pulmonic regurgitation. Great Vessels The aortic root is normal size. The inferior vena cava appeared normal and decreased > 50% with respiration (RAP 5-10 mmHg). Effusions There is no pericardial effusion. : MARAL CANO Anil
[2020-02-15] MEDS: LATANOPROST 0.005% OPH SOLN 2.5 ML OU SCH (22:41)
[2020-02-15] MEDS: SIMVASTATIN 40 MG TABLET PO SCH (22:41)
[2020-02-15] MEDS: FAMOTIDINE INJ/PF 20 MG/2 ML SDV IV SCH (22:42)
[2020-02-15] MEDS: CEFTRIAXONE 2 GM/D5W RTU 2 GM/50 ML RTUPB IV SCH (22:43)
[2020-02-16] MEDS: IPRATROPIUM/ALBUTEROL 0.5-2.5 MG/3 ML AMPUL NEB SCH ×4 (02:14→21:14)
[2020-02-16] MEDS: PANTOPRAZOLE SODIUM 40 MG TABLET.DR PO SCH (06:54)
[2020-02-16 07:10] LABS: HEMATOCRIT 32.5 % (36.0-47.0); HEMOGLOBIN 10.8 g/dL (12.0-15.5); MEAN CORPUSCULAR HGB CONC 33.1 g/dL (32.0-36.0); MEAN CORPUSCULAR VOLUME 91 fl (80-97); RED BLOOD COUNT 3.58 10^6/uL (3.72-5.28)
[2020-02-16 07:23] LABS: ALBUMIN 3.4 g/dL (3.5-5.0); ALKALINE PHOSPHATASE 89 U/L (38-126); ANION GAP 6 (5-19); ASPARTATE AMINO TRANSFERASE 22 U/L (14-36); BILIRUBIN,DIRECT 0.2 mg/dL (0.0-0.4); BILIRUBIN,TOTAL 0.5 mg/dL (0.2-1.3); BLOOD UREA NITROGEN 24 mg/dL (7-20); CALCIUM 9.3 mg/dL (8.4-10.2); CARBON DIOXIDE 28 mmol/L (22-30); CHLORIDE 106 mmol/L (98-107); GLUCOSE 155 mg/dL (75-110)
[2020-02-16] MEDS: BUDESONIDE NEB 0.5 MG/2 ML AMPUL NEB SCH ×2 (07:41→21:14)
[2020-02-16 07:57] LABS: WHITE BLOOD COUNT 8.4 10^3/uL (4.0-10.5)
[2020-02-16 08:02] LABS: PLATELET COUNT 75 10^3/uL (150-450)
[2020-02-16 08:03] LABS: ABSOLUTE LYMPHOCYTES# (MANUAL) 0.6 10^3/uL (0.5-4.7); ABSOLUTE MONOCYTES # (MANUAL) 0.4 10^3/uL (0.1-1.4); BASOPHILS % (MANUAL) 0 % (0-2); EOSINOPHILS % (MANUAL) 0 % (0-6); LYMPHOCYTES % (MANUAL) 6 % (13-45); MONOCYTES % (MANUAL) 5 % (3-13); SEGMENTED NEUTROPHILS % (MAN) 88 % (42-78); TOTAL CELLS COUNTED 100
[2020-02-16 08:04] LABS: ANISOCYTOSIS 1+; POLYCHROMASIA SLIGHT
[2020-02-16 08:05] LABS: PLATELET COMMENT DECREASED
--- NOTE | 2020-02-16 09:00 | EKG REPORT ---
SEVERITY:- BORDERLINE ECG - SINUS RHYTHM BORDERLINE T ABNORMALITIES, INFERIOR LEADS : Confirmed by: Arianne Begum MD 16-Feb-2020 08:59:43
--- NOTE | 2020-02-16 11:40 | PDOC PROGRESS REPORT ---
Subjective Date:: 02/16/20 Reason For Visit: EMPHYSEMA, CHOLDEYSTITIS, ?PNA Patient seen at bedside. She was agitated, confused. Apparently overnight she did well and had no clinical issues. Physical Exam Vital Signs: Temp Pulse Resp BP Pulse Ox 98.3 F 68 18 138/63 H 96 02/16/20 09:35 02/16/20 07:51 02/16/20 07:51 02/16/20 07:15 02/16/20 07:51 Intake & Output 02/15/20 02/16/20 02/17/20 06:59 06:59 06:59 Intake Total 300 Output Total 1750 Balance 300 -1750 Weight 89.1 kg 82.6 kg General appearance: PRESENT: other - Agitated, confused, looking up suction to her IV. Eventually settled down when arrived GI/Abdominal exam: PRESENT: other - The abdomen is distended, but soft doughy no peritoneal signs no rigidity. Results Laboratory Results: 02/16/20 06:09 02/16/20 06:09 02/16/20 02/16/20 06:09 06:09 WBC 8.4 D RBC 3.58 L Hgb 10.8 L Hct 32.5 L MCV 91 MCH 30.0 MCHC 33.1 RDW 18.0 H Plt Count 75 L Seg Neutrophils % Not Reportable Sodium 140.2 Potassium 4.0 Chloride 106 Carbon Dioxide 28 Anion Gap 6 BUN 24 H Creatinine 0.54 Est GFR ( Amer) > 60 Glucose 155 H Calcium 9.3 Total Bilirubin 0.5 AST 22 Alkaline Phosphatase 89 Total Protein 7.0 Albumin 3.4 L 02/14/20 21:55 Blood Blood Culture (PCR) - Final Staphylococcus Species 02/14/20 23:06 Blood Blood Culture (PCR) - Final Escherichia Coli 02/14/20 02/15/20 02/15/20 21:55 04:22 04:22 Troponin I 0.019 0.203 NT-Pro-B Natriuret Pep 756 H 02/15/20 08:55 Troponin I 0.174 NT-Pro-B Natriuret Pep Impressions: Chest X-Ray 02/14/20 22:03 IMPRESSION: Bilateral interstitial opacities consistent with edema or atypical pneumonia with small right pleural effusion. Chest/Abdomen CTA 02/15/20 00:23 IMPRESSION: 1. No evidence of pulmonary embolus. 2. Very small right pleural effusion with findings favored to represent chronic underlying interstitial lung disease in the lung bases although cannot exclude component of mild edema. 3. Emphysema. 4. Changes of cirrhosis and splenomegaly partially imaged in the upper abdomen. 5. Abnormal appearance of a partially imaged gallbladder, consider ultrasound follow-up. 6. Partially imaged air and fluid collection along the caudate lobe of the liver. While this could represent a loop of bowel in an unusual location, abscess is of concern. Would recommend follow-up CT of the abdomen and pelvis ideally with contrast to better evaluate. Abdomen/Pelvis CT 02/15/20 03:27 IMPRESSION: 1. Abnormal gallbladder, suspicious for acute cholecystitis. The air raises concern for emphysematous cholecystitis. 2. Large duodenal diverticulum, but no associated acute inflammatory changes. (Questionable fluid collection on CTA chest corresponds to fluid in the duodenum) 3. Varices, consistent with portal hypertension 4. 4 cm distal abdominal aortic aneurysm. Recommend follow-up every 12 months and vascular consultation. Assessment & Plan - Diagnosis (1) Cholecystitis Is this a current diagnosis for this admission?: Yes Plan: Impression: No evidence of acute abdomen; liver function studies within normal limits. Patient has a history of ERCP, stent placement, cholecystostomy tube over a year ago. Now has gram-negative bacteremia of unclear etiology. Recommendations: 1. Discussed case with Dr. CANO, as well as the radiologist. I do not believe patient has acute cholecystitis. Recommendations were made for a percutaneous IR directed cholecystostomy tube. Gallbladder is not acutely enlarged and the intraluminal volume is small. We will obtain a HIDA scan to ascertain whether the cystic duct is open or not. The gallbladder does not fill, then we will discuss the shoulder role of a cholecystostomy tube, however manipulating a tube into a small lumen may be challenging. 2. Conversely if the HIDA scan is normal, then there is no indication for i ntervention with the gallbladder. (3) Dyspnea Qualifiers: Dyspnea type: shortness of breath Qualified Code(s): R06.02 - Shortness of breath; R06.00 - Dyspnea, unspecified; R06.01 - Orthopnea (4) Emphysema of lung Qualifiers: Emphysema type: panlobular Qualified Code(s): J43.1 - Panlobular emphysema - Time Anticipated Discharge Disposition: Home, Self Care Anticipated Discharge Timeframe: within 48 hours
--- NOTE | 2020-02-16 12:11 | RADIOLOGY REPORT (SQ) ---
EXAM DESCRIPTION: NM HIDA SCAN IMAGES COMPLETED DATE/TIME: 02/16/2020 10:48 am REASON FOR STUDY: cholecystitis D46.4 REFRACTORY ANEMIA, UNSPECIFIED COMPARISON: See in 02/15/2020 RADIONUCLIDE AND DOSE: DOSAGE RADIONUCLIDE: 5 millicuries Tc99m Mebrofenin. DOSAGE MORPHINE: Not required. The route of agent administration: Intravenous TECHNIQUE: Serial imaging right upper quadrant up to 60 minutes following injection of radionuclide. Patient imaged AP and Right Lateral. LIMITATIONS: None. FINDINGS: LIVER: Normal visualization without areas of photopenia. INTRA-HEPATIC BILE DUCTS: Temporal visualization normal. No dilatation. COMMON BILE DUCT: Normal without dilatation or delayed visualization. GALLBLADDER: Normal visualization. OTHER: No other significant finding. IMPRESSION: No evidence of cystic or common duct obstruction. TECHNICAL DOCUMENTATION: JOB ID: [id number] 2010 [employer]- All Rights Reserved Reading location - IP/workstation name: [email or web address]
[2020-02-16] MEDS: CYANOCOBALAMIN (VITAMIN B-12) 1,000 MCG TABLET PO SCH (14:34)
[2020-02-16] MEDS: PREDNISONE 10 MG TABLET PO SCH (14:34)
[2020-02-16] MEDS: FERROUS SULFATE 325 MG TABLET PO SCH (14:34)
[2020-02-16] MEDS: CHOLECALCIFEROL (D3) 1,000 UNIT (25 MCG) TABLET PO SCH (14:34)
[2020-02-16] MEDS: FUROSEMIDE INJ/PF 20 MG/2 ML SDV IV SCH (14:34)
[2020-02-16] MEDS: ENOXAPARIN SODIUM INJ 40 MG/0.4 ML DISP.SYRIN SUBCUT SCH (14:35)
[2020-02-16] MEDS: FAMOTIDINE INJ/PF 20 MG/2 ML SDV IV SCH ×2 (14:35→22:07)
[2020-02-16] MEDS: FLUTICASONE/UMECLIDIN/VILANTER 100-62.5-25 MCG/DOSE IH SCH (14:36)
--- NOTE | 2020-02-16 17:50 | PDOC PROGRESS REPORT ---
Subjective Date:: 02/16/20 Subjective:: Patient has breathing remains at baseline. She has not had any repeat episodes o f shortness of breath since she has been here. She is having bacteremia we have been treating that. She still has some pain at the right upper quadrant. Reason For Visit: EMPHYSEMA, CHOLDEYSTITIS, ?PNA Physical Exam Vital Signs: Temp Pulse Resp BP Pulse Ox 98.7 F 91 18 134/68 H 99 02/16/20 16:41 02/16/20 16:41 02/16/20 16:41 02/16/20 16:41 02/16/20 16:41 Intake & Output 02/15/20 02/16/20 02/17/20 06:59 06:59 06:59 Intake Total 300 50 Output Total 1750 Balance 300 -1700 Weight 89.1 kg 82.6 kg General appearance: PRESENT: no acute distress, cooperative, hard of hearing, obese. ABSENT: mild distress Eye exam: PRESENT: EOMI Neck exam: ABSENT: JVD Respiratory exam: PRESENT: crackles, symmetrical, unlabored. ABSENT: tachypnea, wheezes Cardiovascular exam: PRESENT: RRR, +S1, +S2. ABSENT: tachycardia GI/Abdominal exam: PRESENT: soft, tenderness. ABSENT: distended, firm, guarding, rebound, rigid Neurological exam: PRESENT: alert, awake, oriented to person, oriented to place, oriented to time Psychiatric exam: ABSENT: agitated, anxious Results Laboratory Results: 02/16/20 06:09 02/16/20 06:09 02/16/20 02/16/20 06:09 06:09 WBC 8.4 D RBC 3.58 L Hgb 10.8 L Hct 32.5 L MCV 91 MCH 30.0 MCHC 33.1 RDW 18.0 H Plt Count 75 L Seg Neutrophils % Not Reportable Sodium 140.2 Potassium 4.0 Chloride 106 Carbon Dioxide 28 Anion Gap 6 BUN 24 H Creatinine 0.54 Est GFR ( Amer) > 60 Glucose 155 H Calcium 9.3 Total Bilirubin 0.5 AST 22 Alkaline Phosphatase 89 Total Protein 7.0 Albumin 3.4 L 02/14/20 21:55 Blood Blood Culture (PCR) - Final Staphylococcus Species 02/14/20 23:06 Blood Blood Culture (PCR) - Final Escherichia Coli 02/14/20 02/15/20 02/15/20 21:55 04:22 04:22 Troponin I 0.019 0.203 NT-Pro-B Natriuret Pep 756 H 02/15/20 08:55 Troponin I 0.174 NT-Pro-B Natriuret Pep Impressions: Chest X-Ray 02/14/20 22:03 IMPRESSION: Bilateral interstitial opacities consistent with edema or atypical pneumonia with small right pleural effusion. Chest/Abdomen CTA 02/15/20 00:23 IMPRESSION: 1. No evidence of pulmonary embolus. 2. Very small right pleural effusion with findings favored to represent chronic underlying interstitial lung disease in the lung bases although cannot exclude component of mild edema. 3. Emphysema. 4. Changes of cirrhosis and splenomegaly partially imaged in the upper abdomen. 5. Abnormal appearance of a partially imaged gallbladder, consider ultrasound follow-up. 6. Partially imaged air and fluid collection along the caudate lobe of the liver. While this could represent a loop of bowel in an unusual location, abscess is of concern. Would recommend follow-up CT of the abdomen and pelvis ideally with contrast to better evaluate. Abdomen/Pelvis CT 02/15/20 03:27 IMPRESSION: 1. Abnormal gallbladder, suspicious for acute cholecystitis. The air raises concern for emphysematous cholecystitis. 2. Large duodenal diverticulum, but no associated acute inflammatory changes. (Questionable fluid collection on CTA chest corresponds to fluid in the duodenum) 3. Varices, consistent with portal hypertension 4. 4 cm distal abdominal aortic aneurysm. Recommend follow-up every 12 months and vascular consultation. Hepatobiliary Scan Nuclear Medicine 02/16/20 00:00 IMPRESSION: No evidence of cystic or common duct obstruction. Assessment and Plan - Diagnosis (1) E coli bacteremia Is this a current diagnosis for this admission?: Yes Plan: E. coli is typically from digestive tract or urinary tract. Given that her u rinalysis is completely normal, only saw the source is likely GI making a cholecystitis is the likely source. Continue ceftriaxone day 3. Await susceptibility results. Blood cultures repeated (2) Emphysematous cholecystitis Is this a current diagnosis for this admission?: Yes Plan: Dr. Tuttle evaluated patient and discussed with radiologist and deemed that it would be difficult to place a cholecystostomy tube given narrow lumen of gallbladder. HIDA scan was done which was unremarkable. As such, Dr. Tuttle is now recommending not to place cholecystostomy tube and is doubtful of acute cholecystitis. I will have patient follow up with [facility] as outpatient (3) Emphysema of lung Qualifiers: Emphysema type: panlobular Qualified Code(s): J43.1 - Panlobular emphysema Is this a current diagnosis for this admission?: Yes Plan: DuoNebs every 6 hours for possible exacerbation. She is notably on Trelegy and low-dose prednisone at home. (4) Pulmonary interstitial fibrosis Is this a current diagnosis for this admission?: Yes Plan: I have reviewed patient's CT image from last month at [facility] on [facility] and it appears pretty much identical to her imaging today. I highly doubt that there is any overlying pneumonia. What I see in the imaging is simply a lot of emphysematous lungs and what appears to be chronic fibrotic lung changes. She will continue to follow-up with a feather edger outpatient. Echo shows pulmonary hypertension. (5) Acute on chronic respiratory failure with hypoxia Is this a current diagnosis for this admission?: Yes Plan: endorses that she did use about 5 L of oxygen at home but he has weaned it down to 3% because she is usually almost 100% on that. I have educated him on goal SPO2 being low 90s for patient not high. Avoid overoxygenation. (6) Elevated troponin I level Is this a current diagnosis for this admission?: Yes (7) Chronic liver disease in patient with history of hepatocellular carcinoma Is this a current diagnosis for this admission?: Yes (8) Thrombocytopenia Is this a current diagnosis for this admission?: Yes (9) AAA (abdominal aortic aneurysm) Qualifiers: Presence of rupture: without rupture Qualified Code(s): I71.4 - Abdominal aortic aneurysm, without rupture Is this a current diagnosis for this admission?: Yes - Time Time Spent with patient: 25-34 minutes Anticipated Discharge Disposition: Home, Self Care Anticipated Discharge Timeframe: within 48 hours
[2020-02-16] MEDS: CEFTRIAXONE 2 GM/D5W RTU 2 GM/50 ML RTUPB IV SCH (22:06)
[2020-02-16] MEDS: SIMVASTATIN 40 MG TABLET PO SCH (22:07)
[2020-02-16] MEDS: LATANOPROST 0.005% OPH SOLN 2.5 ML OU SCH (22:09)
[2020-02-17] MEDS: IPRATROPIUM/ALBUTEROL 0.5-2.5 MG/3 ML AMPUL NEB SCH ×4 (02:39→20:30)
[2020-02-17] MEDS: PANTOPRAZOLE SODIUM 40 MG TABLET.DR PO SCH (06:02)
[2020-02-17] MEDS: BUDESONIDE NEB 0.5 MG/2 ML AMPUL NEB SCH ×2 (08:11→20:30)
[2020-02-17 09:13] LABS: ABSOLUTE LYMPHOCYTES (AUTO) 0.6 10^3/uL (0.5-4.7); ABSOLUTE MONOCYTES (AUTO) 0.3 10^3/uL (0.1-1.4); ABSOLUTE NEUT (AUTO) 5.1 10^3/uL (1.7-8.2); BASOPHILS % (AUTO) 0.5 % (0-2); EOSINOPHILS % (AUTO) 0.6 % (0-6); HEMATOCRIT 33.2 % (36.0-47.0); LYMPHOCYTES % (AUTO) 10.5 % (13-45); MEAN CORPUSCULAR HEMOGLOBIN 30.1 pg (27.0-33.4); MEAN CORPUSCULAR HGB CONC 33.3 g/dL (32.0-36.0); MEAN CORPUSCULAR VOLUME 91 fl (80-97); MONOCYTES % (AUTO) 5.5 % (3-13); RED BLOOD COUNT 3.67 10^6/uL (3.72-5.28); RED CELL DISTRIBUTION WIDTH 18.2 % (11.5-14.0); SEGMENTED NEUTROPHILS % (AUTO) 82.9 % (42-78); TOTAL CELLS COUNTED % (AUTO) 100 %; WHITE BLOOD COUNT 6.1 10^3/uL (4.0-10.5)
[2020-02-17 09:35] LABS: ANION GAP 9 (5-19); BLOOD UREA NITROGEN 19 mg/dL (7-20); CARBON DIOXIDE 24 mmol/L (22-30); CHLORIDE 106 mmol/L (98-107); GLUCOSE 150 mg/dL (75-110); POTASSIUM 4.1 mmol/L (3.6-5.0)
[2020-02-17 09:41] LABS: PLATELET COUNT 79 10^3/uL (150-450)
[2020-02-17] MEDS: FERROUS SULFATE 325 MG TABLET PO SCH (10:00)
[2020-02-17] MEDS: CHOLECALCIFEROL (D3) 1,000 UNIT (25 MCG) TABLET PO SCH (10:00)
[2020-02-17] MEDS: PREDNISONE 10 MG TABLET PO SCH (10:00)
[2020-02-17] MEDS: CYANOCOBALAMIN (VITAMIN B-12) 1,000 MCG TABLET PO SCH (10:00)
[2020-02-17] MEDS: FUROSEMIDE INJ/PF 20 MG/2 ML SDV IV SCH (10:00)
[2020-02-17] MEDS: FAMOTIDINE INJ/PF 20 MG/2 ML SDV IV SCH ×2 (10:00→21:57)
[2020-02-17] MEDS: FLUTICASONE/UMECLIDIN/VILANTER 100-62.5-25 MCG/DOSE IH SCH (10:01)
[2020-02-17] MEDS: ENOXAPARIN SODIUM INJ 40 MG/0.4 ML DISP.SYRIN SUBCUT SCH (10:01)
[2020-02-17] MEDS ORDERED: DOCUSATE SODIUM 100 MG CAPSULE PO ONE (11:30)
--- NOTE | 2020-02-17 14:30 | PDOC PROGRESS REPORT ---
Subjective Date:: 02/17/20 Subjective:: Patient is feeling better today. Was displeased that no intervention was done on her gall bladder. Reason For Visit: EMPHYSEMA, CHOLDEYSTITIS, ?PNA Physical Exam Vital Signs: Temp Pulse Resp BP Pulse Ox 98.3 F 82 16 130/56 H 100 02/17/20 11:02 02/17/20 11:02 02/17/20 11:02 02/17/20 11:02 02/17/20 11:02 Intake & Output 02/16/20 02/17/20 02/18/20 06:59 06:59 06:59 Intake Total 50 290 Output Total 1750 2175 450 Balance -1700 -1885 -450 Weight 82.6 kg 80.2 kg General appearance: PRESENT: no acute distress, cooperative Neck exam: ABSENT: JVD Respiratory exam: PRESENT: symmetrical, unlabored. ABSENT: tachypnea, wheezes Cardiovascular exam: PRESENT: RRR, +S1, +S2. ABSENT: tachycardia GI/Abdominal exam: PRESENT: soft. ABSENT: rebound, rigid, tenderness Neurological exam: PRESENT: alert, awake Results Laboratory Results: 02/17/20 08:50 02/17/20 08:50 02/17/20 02/17/20 08:50 08:50 WBC 6.1 RBC 3.67 L Hgb 11.0 L Hct 33.2 L MCV 91 MCH 30.1 MCHC 33.3 RDW 18.2 H Plt Count 79 L Seg Neutrophils % 82.9 H Sodium 139.2 Potassium 4.1 Chloride 106 Carbon Dioxide 24 Anion Gap 9 BUN 19 Creatinine 0.57 Est GFR ( Amer) > 60 Glucose 150 H Calcium 9.0 02/14/20 21:55 Blood Blood Culture (PCR) - Final Staphylococcus Species 02/14/20 02/15/20 02/15/20 21:55 04:22 04:22 Troponin I 0.019 0.203 NT-Pro-B Natriuret Pep 756 H 02/15/20 08:55 Troponin I 0.174 NT-Pro-B Natriuret Pep Impressions: Chest X-Ray 02/14/20 22:03 IMPRESSION: Bilateral interstitial opacities consistent with edema or atypical pneumonia with small right pleural effusion. Chest/Abdomen CTA 02/15/20 00:23 IMPRESSION: 1. No evidence of pulmonary embolus. 2. Very small right pleural effusion with findings favored to represent chronic underlying interstitial lung disease in the lung bases although cannot exclude component of mild edema. 3. Emphysema. 4. Changes of cirrhosis and splenomegaly partially imaged in the upper abdomen. 5. Abnormal appearance of a partially imaged gallbladder, consider ultrasound follow-up. 6. Partially imaged air and fluid collection along the caudate lobe of the liver. While this could represent a loop of bowel in an unusual location, abscess is of concern. Would recommend follow-up CT of the abdomen and pelvis ideally with contrast to better evaluate. Abdomen/Pelvis CT 02/15/20 03:27 IMPRESSION: 1. Abnormal gallbladder, suspicious for acute cholecystitis. The air raises concern for emphysematous cholecystitis. 2. Large duodenal diverticulum, but no associated acute inflammatory changes. (Questionable fluid collection on CTA chest corresponds to fluid in the duodenum) 3. Varices, consistent with portal hypertension 4. 4 cm distal abdominal aortic aneurysm. Recommend follow-up every 12 months and vascular consultation. Hepatobiliary Scan Nuclear Medicine 02/16/20 00:00 IMPRESSION: No evidence of cystic or common duct obstruction. Assessment and Plan - Diagnosis (1) E coli bacteremia Is this a current diagnosis for this admission?: Yes Plan: E. coli is typically from digestive tract or urinary tract. Given that her urinalysis is completely normal, only saw the source is likely GI making a cholecystitis is the likely source. Continue ceftriaxone day 4. Await susceptibility results. Blood cultures repeated and negative at 24-hour nirali. Will discharge if negative tomorrow by 48-hour nirali. (2) Emphysematous cholecystitis Is this a current diagnosis for this admission?: Yes Plan: Dr. Tuttle has evaluated patient and discussed with radiologist and deemed that it would be difficult to place a cholecystostomy tube given narrow lumen of gallbladder. HIDA scan was done which was unremarkable. As such, Dr. Tuttle as recommended not to place cholecystostomy tube and is doubtful of acute cholecystitis. I will have patient follow up with [facility] as outpatient (3) Emphysema of lung Qualifiers: Emphysema type: panlobular Qualified Code(s): J43.1 - Panlobular emphysema Is this a current diagnosis for this admission?: Yes Plan: DuoNebs every 6 hours for possible exacerbation. She is notably on Trelegy and low-dose prednisone at home. (4) Pulmonary interstitial fibrosis Is this a current diagnosis for this admission?: Yes Plan: I have reviewed patient's CT image from last month at [facility] on PACS and it appears pretty much identical to her imaging today. I highly doubt that there is any overlying pneumonia. What I see in the imaging is simply a lot of emphysematous lungs and what appears to be chronic fibrotic lung changes. She will continue to follow-up with a pl sql developer outpatient. Echo shows pulmonary hypertension. Continue Lasix (5) Acute on chronic respiratory failure with hypoxia Is this a current diagnosis for this admission?: Yes Plan: endorses that she did use about 5 L of oxygen at home but he has weaned it down to 3% because she is usually almost 100% on that. I have educated him on goal SPO2 being low 90s for patient not high. Avoid overoxygenation. Wean oxygen. (6) Elevated troponin I level Is this a current diagnosis for this admission?: Yes (7) Chronic liver disease in patient with history of hepatocellular carcinoma Is this a current diagnosis for this admission?: Yes (8) Thrombocytopenia Is this a current diagnosis for this admission?: Yes (9) AAA (abdominal aortic aneurysm) Qualifiers: Presence of rupture: without rupture Qualified Code(s): I71.4 - Abdominal aortic aneurysm, without rupture Is this a current diagnosis for this admission?: Yes - Time Time Spent with patient: 15-24 minutes Anticipated Discharge Disposition: Home, Self Care Anticipated Discharge Timeframe: within 24 hours
[2020-02-17] MEDS: SIMVASTATIN 40 MG TABLET PO SCH (21:57)
[2020-02-17] MEDS ORDERED: MEROPENEM 1 GM VIAL IV PRN (22:00)
[2020-02-17] MEDS ORDERED: MEROPENEM 1 GM VIAL ONE (22:31)
[2020-02-17] MEDS: MEROPENEM 1 GM in NORMAL SALINE 50 ML IV SCH (22:45)
[2020-02-17] MEDS: LATANOPROST 0.005% OPH SOLN 2.5 ML OU SCH (23:23)
[2020-02-18] MEDS: IPRATROPIUM/ALBUTEROL 0.5-2.5 MG/3 ML AMPUL NEB SCH ×4 (02:45→21:35)
[2020-02-18] MEDS: MEROPENEM 1 GM in NORMAL SALINE 50 ML IV SCH ×3 (05:14→21:40)
[2020-02-18] MEDS: PANTOPRAZOLE SODIUM 40 MG TABLET.DR PO SCH (05:24)
[2020-02-18] MEDS: BUDESONIDE NEB 0.5 MG/2 ML AMPUL NEB SCH ×2 (08:01→21:35)
[2020-02-18] MEDS: DOCUSATE SODIUM 100 MG CAPSULE PO SCH (11:10)
[2020-02-18] MEDS: CHOLECALCIFEROL (D3) 1,000 UNIT (25 MCG) TABLET PO SCH (11:12)
[2020-02-18] MEDS: CYANOCOBALAMIN (VITAMIN B-12) 1,000 MCG TABLET PO SCH (11:12)
[2020-02-18] MEDS: FERROUS SULFATE 325 MG TABLET PO SCH (11:12)
[2020-02-18] MEDS: PREDNISONE 10 MG TABLET PO SCH (11:12)
[2020-02-18] MEDS: FLUTICASONE/UMECLIDIN/VILANTER 100-62.5-25 MCG/DOSE IH SCH (11:14)
[2020-02-18] MEDS: FUROSEMIDE 20 MG TABLET PO SCH (11:18)
[2020-02-18] MEDS: ENOXAPARIN SODIUM INJ 40 MG/0.4 ML DISP.SYRIN SUBCUT SCH (11:19)
[2020-02-18] MEDS: FAMOTIDINE INJ/PF 20 MG/2 ML SDV IV SCH ×2 (11:21→21:40)
--- NOTE | 2020-02-18 14:20 | PDOC PROGRESS REPORT ---
Subjective Date:: 02/18/20 Subjective:: Patient feels well today. Reason For Visit: EMPHYSEMA, CHOLDEYSTITIS, ?PNA Physical Exam Vital Signs: Temp Pulse Resp BP Pulse Ox 98.9 F 92 19 114/54 L 97 02/18/20 11:16 02/18/20 11:16 02/18/20 11:16 02/18/20 11:16 02/18/20 11:16 Intake & Output 02/17/20 02/18/20 02/19/20 06:59 06:59 06:59 Intake Total 290 480 236 Output Total 2175 2250 200 Balance -0461 -1920 36 Weight 80.2 kg 80.8 kg General appearance: PRESENT: no acute distress, cooperative Eye exam: PRESENT: EOMI Neck exam: ABSENT: JVD Respiratory exam: PRESENT: symmetrical, unlabored. ABSENT: accessory muscle use, tachypnea, wheezes Cardiovascular exam: PRESENT: RRR, +S1, +S2. ABSENT: tachycardia GI/Abdominal exam: PRESENT: soft. ABSENT: rebound, rigid, tenderness Neurological exam: PRESENT: alert, awake, oriented to person, oriented to place, oriented to time Results Laboratory Results: 02/17/20 08:50 02/17/20 08:50 02/14/20 23:06 Blood Blood Culture (PCR) - Final Escherichia Coli 02/14/20 23:06 Blood Blood Culture - Final Escherichia Coli Esbl 02/14/20 21:55 Blood Blood Culture (PCR) - Final Staphylococcus Species 02/14/20 21:55 Blood Blood Culture - Final Staphylococcus Epidermidis 02/14/20 02/15/20 02/15/20 21:55 04:22 04:22 Troponin I 0.019 0.203 NT-Pro-B Natriuret Pep 756 H 02/15/20 08:55 Troponin I 0.174 NT-Pro-B Natriuret Pep Impressions: Chest X-Ray 02/14/20 22:03 IMPRESSION: Bilateral interstitial opacities consistent with edema or atypical pneumonia with small right pleural effusion. Chest/Abdomen CTA 02/15/20 00:23 IMPRESSION: 1. No evidence of pulmonary embolus. 2. Very small right pleural effusion with findings favored to represent chronic underlying interstitial lung disease in the lung bases although cannot exclude component of mild edema. 3. Emphysema. 4. Changes of cirrhosis and splenomegaly partially imaged in the upper abdomen. 5. Abnormal appearance of a partially imaged gallbladder, consider ultrasound follow-up. 6. Partially imaged air and fluid collection along the caudate lobe of the liver. While this could represent a loop of bowel in an unusual location, abscess is of concern. Would recommend follow-up CT of the abdomen and pelvis ideally with contrast to better evaluate. Abdomen/Pelvis CT 02/15/20 03:27 IMPRESSION: 1. Abnormal gallbladder, suspicious for acute cholecystitis. The air raises concern for emphysematous cholecystitis. 2. Large duodenal diverticulum, but no associated acute inflammatory changes. (Questionable fluid collection on CTA chest corresponds to fluid in the duodenum) 3. Varices, consistent with portal hypertension 4. 4 cm distal abdominal aortic aneurysm. Recommend follow-up every 12 months and vascular consultation. Hepatobiliary Scan Nuclear Medicine 02/16/20 00:00 IMPRESSION: No evidence of cystic or common duct obstruction. Assessment and Plan - Diagnosis (1) E coli bacteremia Is this a current diagnosis for this admission?: Yes Plan: Initial blood culture positive for ESBL coli in 1 set. She only received ceftriaxone before repeat blood cultures taking surprisingly are now negative. Patient's informed me that patient was being treated for infection as outpatient by formerly [facility] and recently received a call to [place] the abx to Nitrourantoin which had been initiated due to resistance to the prior abx. I called [facility] today and verified that patient was being treated for UTI from ESBL E. coli. This is likely the source of her bacteremia. I have switched patient's antibiotics from ceftriaxone to meropenem yesterday. I have placed an infectious disease consult for tomorrow to know if to continue with nitrofurantoin or if to plan for Carbapenem as outpatient to complete course. (2) Emphysematous cholecystitis Is this a current diagnosis for this admission?: Yes Plan: Dr. Tuttle has evaluated patient and discussed with radiologist and deemed that it would be difficult to place a cholecystostomy tube given narrow lumen of gallbladder. HIDA scan was done which was unremarkable. As such, Dr. Tuttle as recommended not to place cholecystostomy tube and is doubtful of acute cholecystitis. (3) Emphysema of lung Qualifiers: Emphysema type: panlobular Qualified Code(s): J43.1 - Panlobular emphysema Is this a current diagnosis for this admission?: Yes Plan: DuoNebs. She is notably on Trelegy and low-dose prednisone at home. (4) Pulmonary interstitial fibrosis Is this a current diagnosis for this admission?: Yes Plan: I have reviewed patient's CT image from last month at [facility] on PACS and it appears pretty much identical to her imaging today. I highly doubt that there is any overlying pneumonia. What I see in the imaging is simply a lot of emphysematous lungs and what appears to be chronic fibrotic lung changes. She will continue to follow-up with a radiation protection technician outpatient. Echo shows pulmonary hypertension. Continue oxygen. (5) Acute on chronic respiratory failure with hypoxia Is this a current diagnosis for this admission?: Yes (6) Elevated troponin I level Is this a current diagnosis for this admission?: Yes (7) Chronic liver disease in patient with history of hepatocellular carcinoma Is this a current diagnosis for this admission?: Yes (8) Thrombocytopenia Is this a current diagnosis for this admission?: Yes (9) AAA (abdominal aortic aneurysm) Qualifiers: Presence of rupture: without rupture Qualified Code(s): I71.4 - Abdominal aortic aneurysm, without rupture Is this a current diagnosis for this admission?: Yes - Time Time Spent with patient: 15-24 minutes Anticipated Discharge Disposition: Home, Self Care Anticipated Discharge Timeframe: within 24 hours
[2020-02-18] MEDS: SIMVASTATIN 40 MG TABLET PO SCH (21:40)
[2020-02-18] MEDS: LATANOPROST 0.005% OPH SOLN 2.5 ML OU SCH (22:02)
[2020-02-19] MEDS: IPRATROPIUM/ALBUTEROL 0.5-2.5 MG/3 ML AMPUL NEB SCH ×4 (01:52→20:13)
[2020-02-19] MEDS: PANTOPRAZOLE SODIUM 40 MG TABLET.DR PO SCH (05:17)
[2020-02-19] MEDS: MEROPENEM 1 GM in NORMAL SALINE 50 ML IV SCH ×3 (05:17→21:04)
[2020-02-19] MEDS: BUDESONIDE NEB 0.5 MG/2 ML AMPUL NEB SCH ×2 (08:47→20:13)
[2020-02-19] MEDS: CYANOCOBALAMIN (VITAMIN B-12) 1,000 MCG TABLET PO SCH (10:03)
[2020-02-19] MEDS: FAMOTIDINE INJ/PF 20 MG/2 ML SDV IV SCH ×2 (10:03→21:04)
[2020-02-19] MEDS: ENOXAPARIN SODIUM INJ 40 MG/0.4 ML DISP.SYRIN SUBCUT SCH (10:03)
[2020-02-19] MEDS: CHOLECALCIFEROL (D3) 1,000 UNIT (25 MCG) TABLET PO SCH (10:04)
[2020-02-19] MEDS: PREDNISONE 10 MG TABLET PO SCH (10:04)
[2020-02-19] MEDS: FERROUS SULFATE 325 MG TABLET PO SCH (10:04)
[2020-02-19] MEDS: DOCUSATE SODIUM 100 MG CAPSULE PO SCH (10:04)
[2020-02-19] MEDS: FUROSEMIDE 20 MG TABLET PO SCH (10:04)
[2020-02-19] MEDS: FLUTICASONE/UMECLIDIN/VILANTER 100-62.5-25 MCG/DOSE IH SCH (10:04)
--- NOTE | 2020-02-19 12:00 | PDOC PROGRESS REPORT ---
Subjective Date:: 02/19/20 Subjective:: Patient feels well today. She has no complaints. Very cheerful. Reason For Visit: EMPHYSEMA, CHOLDEYSTITIS, ?PNA Physical Exam Vital Signs: Temp Pulse Resp BP Pulse Ox 97.7 F 82 17 127/65 H 98 02/19/20 10:00 02/19/20 08:47 02/19/20 08:47 02/19/20 07:40 02/19/20 08:47 Intake & Output 02/18/20 02/19/20 02/20/20 06:59 06:59 06:59 Intake Total 480 622 Output Total 2250 600 Balance -1770 22 Weight 80.8 kg 80.5 kg General appearance: PRESENT: no acute distress, cooperative Neck exam: ABSENT: JVD Respiratory exam: PRESENT: symmetrical, unlabored. ABSENT: tachypnea, wheezes Cardiovascular exam: PRESENT: RRR, +S1, +S2. ABSENT: tachycardia GI/Abdominal exam: PRESENT: soft, tenderness - Mild right upper quadrant. ABSENT: rebound, rigid Neurological exam: PRESENT: alert, awake, oriented to person, oriented to place, oriented to time, oriented to situation Results Laboratory Results: 02/17/20 08:50 02/17/20 08:50 02/16/20 06:09 Blood Blood Culture (PCR) - Final Escherichia Coli 02/14/20 02/15/20 02/15/20 21:55 04:22 04:22 Troponin I 0.019 0.203 NT-Pro-B Natriuret Pep 756 H 02/15/20 08:55 Troponin I 0.174 NT-Pro-B Natriuret Pep Impressions: Chest X-Ray 02/14/20 22:03 IMPRESSION: Bilateral interstitial opacities consistent with edema or atypical pneumonia with small right pleural effusion. Chest/Abdomen CTA 02/15/20 00:23 IMPRESSION: 1. No evidence of pulmonary embolus. 2. Very small right pleural effusion with findings favored to represent chronic underlying interstitial lung disease in the lung bases although cannot exclude component of mild edema. 3. Emphysema. 4. Changes of cirrhosis and splenomegaly partially imaged in the upper abdomen. 5. Abnormal appearance of a partially imaged gallbladder, consider ultrasound follow-up. 6. Partially imaged air and fluid collection along the caudate lobe of the liver. While this could represent a loop of bowel in an unusual location, abscess is of concern. Would recommend follow-up CT of the abdomen and pelvis ideally with contrast to better evaluate. Abdomen/Pelvis CT 02/15/20 03:27 IMPRESSION: 1. Abnormal gallbladder, suspicious for acute cholecystitis. The air raises concern for emphysematous cholecystitis. 2. Large duodenal diverticulum, but no associated acute inflammatory changes. (Questionable fluid collection on CTA chest corresponds to fluid in the duodenum) 3. Varices, consistent with portal hypertension 4. 4 cm distal abdominal aortic aneurysm. Recommend follow-up every 12 months and vascular consultation. Hepatobiliary Scan Nuclear Medicine 02/16/20 00:00 IMPRESSION: No evidence of cystic or common duct obstruction. Assessment and Plan - Diagnosis (1) E coli bacteremia Is this a current diagnosis for this admission?: Yes Plan: ESBL Ecoli Bacteremia 2/2 UTI [I confirmed with [facility] yesterday that her UA grew ESBL Ecoli end of last month. Blood Cx negative at the time.]. Thats why her abx was switched to Nitrofurantoin outpatient this month. She was initially on ceftriaxone on admission but switched to meropenem on 02/16 after culture came back positive for ESBL. Repeat culture was initially negative but has popped up positive last night which is to be expected given when meropenem was started. I have placed repeat blood cultures today. It would be ideal for patient's blood culture to be negative for 48 hours, given bacteremia w/ MDR organism, before placing a PICC line. I have placed discharge planning consult for ertapenem 1 g daily until 02/28/2020. (2) Emphysematous cholecystitis Is this a current diagnosis for this admission?: Yes Plan: Dr. Tuttle has evaluated patient and discussed with radiologist and deemed that it would be difficult to place a cholecystostomy tube given narrow lumen of gallbladder. HIDA scan was done which was unremarkable. As such, Dr. Tuttle as recommended not to place cholecystostomy tube and is doubtful of an actual acute cholecystitis. (3) Emphysema of lung Qualifiers: Emphysema type: panlobular Qualified Code(s): J43.1 - Panlobular emphysema Is this a current diagnosis for this admission?: Yes Plan: DuoNebs. She is notably on Trelegy and low-dose prednisone at home. (4) Pulmonary interstitial fibrosis Is this a current diagnosis for this admission?: Yes Plan: I have reviewed patient's CT image from [facility] and it appears pretty much identical to her imaging on admission. I highly doubt that there is any overlying pneumonia. What I see in the imaging is simply a lot of emphysematous lungs and what appears to be chronic fibrotic lung changes. She will continue to follow-up with a electrician rectifier maintenance outpatient. Echo shows pulmonary hypertension. Continue oxygen. (5) Acute on chronic respiratory failure with hypoxia Is this a current diagnosis for this admission?: Yes Plan: endorses that she did use about 5 L of oxygen at home but he has weaned it down to 3% because she is usually almost 100% on that. I have educated him on goal SPO2 being low 90s for patient not high. Avoid overoxygenation. Wean oxygen. (6) Elevated troponin I level Is this a current diagnosis for this admission?: Yes Plan: Likely type II [place] from demand ischemia from episode of hypoxia. EKG shows no new ischemic changes. Peaked at 0.2 then down trended. She denies any chest pain. (7) Chronic liver disease in patient with history of hepatocellular carcinoma Is this a current diagnosis for this admission?: Yes Plan: Has evidence of chronic liver disease possible cirrhosis including portosystemic varices, portal hypertension, thrombocytopenia. Will monitor. Caution with meds. Has had a few sessions of CyberKnife therapy at [facility]. She will continue to follow-up outpatient with her pump servicer supervisor. (8) Thrombocytopenia Is this a current diagnosis for this admission?: Yes Plan: Likely from chronic liver disease. Will monitor. (9) AAA (abdominal aortic aneurysm) Qualifiers: Presence of rupture: without rupture Qualified Code(s): I71.4 - Abdominal aortic aneurysm, without rupture Is this a current diagnosis for this admission?: Yes Plan: Size does not require intervention currently. Outpatient follow-up. - Time Time Spent with patient: 15-24 minutes Anticipated Discharge Disposition: Home, Self Care Anticipated Discharge Timeframe: within 48 hours
[2020-02-19] MEDS: SIMVASTATIN 40 MG TABLET PO SCH (21:04)
[2020-02-19] MEDS: LATANOPROST 0.005% OPH SOLN 2.5 ML OU SCH (21:06)
[2020-02-20] MEDS: IPRATROPIUM/ALBUTEROL 0.5-2.5 MG/3 ML AMPUL NEB SCH ×4 (02:26→19:20)
[2020-02-20] MEDS: MEROPENEM 1 GM in NORMAL SALINE 50 ML IV SCH ×3 (06:05→21:54)
[2020-02-20] MEDS: PANTOPRAZOLE SODIUM 40 MG TABLET.DR PO SCH (06:06)
[2020-02-20] MEDS: BUDESONIDE NEB 0.5 MG/2 ML AMPUL NEB SCH ×2 (09:03→19:20)
[2020-02-20] MEDS: ENOXAPARIN SODIUM INJ 40 MG/0.4 ML DISP.SYRIN SUBCUT SCH (09:37)
[2020-02-20] MEDS: FAMOTIDINE INJ/PF 20 MG/2 ML SDV IV SCH ×2 (09:40→21:52)
[2020-02-20] MEDS: CHOLECALCIFEROL (D3) 1,000 UNIT (25 MCG) TABLET PO SCH (09:40)
[2020-02-20] MEDS: PREDNISONE 10 MG TABLET PO SCH (09:41)
[2020-02-20] MEDS: DOCUSATE SODIUM 100 MG CAPSULE PO SCH (09:41)
[2020-02-20] MEDS: FUROSEMIDE 20 MG TABLET PO SCH (09:41)
[2020-02-20] MEDS: FERROUS SULFATE 325 MG TABLET PO SCH (09:41)
[2020-02-20] MEDS: CYANOCOBALAMIN (VITAMIN B-12) 1,000 MCG TABLET PO SCH (09:41)
[2020-02-20] MEDS: FLUTICASONE/UMECLIDIN/VILANTER 100-62.5-25 MCG/DOSE IH SCH (09:48)
--- NOTE | 2020-02-20 20:27 | PDOC PROGRESS REPORT ---
Subjective Date:: 02/20/20 Subjective:: Care assumed today 02/20/20. Patient was seen and examined at bedside. She denie s any abdominal pain, fever or chills, no nasuea/vomiting. Appetite good. Awaiting discharge planning to set her up for home infusion for abx for ESBL. Reason For Visit: EMPHYSEMA, CHOLDEYSTITIS, ?PNA Physical Exam Vital Signs: Temp Pulse Resp BP Pulse Ox 97.8 F 86 18 120/63 96 02/20/20 15:29 02/20/20 19:20 02/20/20 19:20 02/20/20 15:29 02/20/20 19:20 Intake & Output 02/19/20 02/20/20 02/21/20 06:59 06:59 06:59 Intake Total 622 610 530 Output Total 600 1100 625 Balance 22 -490 -95 Weight 80.5 kg 83.3 kg General appearance: PRESENT: no acute distress, cooperative Head exam: PRESENT: atraumatic, normocephalic Eye exam: PRESENT: EOMI, PERRLA Mouth exam: PRESENT: moist Neck exam: PRESENT: full ROM Respiratory exam: PRESENT: clear to auscultation laney, symmetrical, unlabored Cardiovascular exam: PRESENT: RRR, +S1, +S2 Pulses: PRESENT: +2 pedal pulses bilateral GI/Abdominal exam: PRESENT: normal bowel sounds, soft. ABSENT: rebound, tenderness Extremities exam: PRESENT: full ROM Musculoskeletal exam: PRESENT: full ROM Neurological exam: PRESENT: alert, awake, oriented to person, oriented to place, oriented to time, oriented to situation Psychiatric exam: PRESENT: normal mood Skin exam: PRESENT: normal color Results Laboratory Results: 02/17/20 08:50 02/17/20 08:50 02/16/20 06:09 Blood Blood Culture (PCR) - Final Escherichia Coli 02/16/20 06:09 Blood Blood Culture - Final Escherichia Coli Esbl 02/14/20 02/15/20 02/15/20 21:55 04:22 04:22 Troponin I 0.019 0.203 NT-Pro-B Natriuret Pep 756 H 02/15/20 08:55 Troponin I 0.174 NT-Pro-B Natriuret Pep Impressions: Chest X-Ray 02/14/20 22:03 IMPRESSION: Bilateral interstitial opacities consistent with edema or atypical pneumonia with small right pleural effusion. Chest/Abdomen CTA 02/15/20 00:23 IMPRESSION: 1. No evidence of pulmonary embolus. 2. Very small right pleural effusion with findings favored to represent chronic underlying interstitial lung disease in the lung bases although cannot exclude component of mild edema. 3. Emphysema. 4. Changes of cirrhosis and splenomegaly partially imaged in the upper abdomen. 5. Abnormal appearance of a partially imaged gallbladder, consider ultrasound follow-up. 6. Partially imaged air and fluid collection along the caudate lobe of the liver. While this could represent a loop of bowel in an unusual location, abscess is of concern. Would recommend follow-up CT of the abdomen and pelvis ideally with contrast to better evaluate. Abdomen/Pelvis CT 02/15/20 03:27 IMPRESSION: 1. Abnormal gallbladder, suspicious for acute cholecystitis. The air raises concern for emphysematous cholecystitis. 2. Large duodenal diverticulum, but no associated acute inflammatory changes. (Questionable fluid collection on CTA chest corresponds to fluid in the duodenum) 3. Varices, consistent with portal hypertension 4. 4 cm distal abdominal aortic aneurysm. Recommend follow-up every 12 months and vascular consultation. Hepatobiliary Scan Nuclear Medicine 02/16/20 00:00 IMPRESSION: No evidence of cystic or common duct obstruction. Assessment and Plan - Diagnosis (1) E coli bacteremia Is this a current diagnosis for this admission?: Yes Plan: ESBL Ecoli Bacteremia 2/2 UTI [I confirmed with [facility] yesterday that her UA grew ESBL Ecoli end of last month. Blood Cx negative at the time.]. Thats why her abx was switched to Nitrofurantoin outpatient this month. She was initially on ceftriaxone on admission but switched to meropenem on 02/16 after culture came back positive for ESBL. Repeat culture was initially negative but has popped up positive last night which is to be expected given when meropenem was started. I have placed repeat blood cultures today. PICC line ordered for outpatient ertapenem infusion I have placed discharge planning consult for ertapenem 1 g daily until 02/28/2020. (2) Acute on chronic respiratory failure with hypoxia Is this a current diagnosis for this admission?: Yes Plan: endorses that she did use about 5 L of oxygen at home but he has weaned it down to 3% because she is usually almost 100% on that. I have educated him on goal SPO2 being low 90s for patient not high. Avoid overoxygenation. Wean oxygen. (3) Chronic liver disease in patient with history of hepatocellular carcinoma Is this a current diagnosis for this admission?: Yes Plan: Has evidence of chronic liver disease possible cirrhosis including portosystemic varices, portal hypertension, thrombocytopenia. Will monitor. Caution with meds. Has had a few sessions of CyberKnife therapy at [facility]. She will continue to follow-up outpatient with her knitter helper. (4) Elevated troponin I level Is this a current diagnosis for this admission?: Yes Plan: Likely type II [place] from demand ischemia from episode of hypoxia. EKG shows no new ischemic changes. Peaked at 0.2 then down trended. She denies any chest pain. (5) Emphysema of lung Qualifiers: Emphysema type: panlobular Qualified Code(s): J43.1 - Panlobular emphysema Is this a current diagnosis for this admission?: Yes Plan: DuoNebs. She is notably on Trelegy and low-dose prednisone at home. (6) Emphysematous cholecystitis Is this a current diagnosis for this admission?: Yes Plan: Dr. Tuttle has evaluated patient and discussed with radiologist and deemed that it would be difficult to place a cholecystostomy tube given narrow lumen of gallbladder. HIDA scan was done which was unremarkable. As such, Dr. Tuttle as recommended not to place cholecystostomy tube and is doubtful of an actual acute cholecystitis. (7) Pulmonary interstitial fibrosis Is this a current diagnosis for this admission?: Yes Plan: I have reviewed patient's CT image from last month at [facility] on PACS and it appears pretty much identical to her imaging on admission. I highly doubt that there is any overlying pneumonia. What I see in the imaging is simply a lot of emphysematous lungs and what appears to be chronic fibrotic lung changes. She will continue to follow-up with a tortilla maker outpatient. Echo shows pulmonary hypertension. Continue oxygen. (8) Thrombocytopenia Is this a current diagnosis for this admission?: Yes Plan: Likely from chronic liver disease. Will monitor. (9) AAA (abdominal aortic aneurysm) Qualifiers: Presence of rupture: without rupture Qualified Code(s): I71.4 - Abdominal aortic aneurysm, without rupture Is this a current diagnosis for this admission?: Yes Plan: Size does not require intervention currently. Outpatient follow-up. - Plan Summary Summary: For PICC line placement tomorrow and possible discharge to complete ertapenem infusion at home until 02/28/2020. - Time Time Spent with patient: 15-24 minutes Medications reviewed and adjusted accordingly: Yes Anticipated Discharge Disposition: Home with Home Health Anticipated Discharge Timeframe: within 24 hours
[2020-02-20] MEDS: SIMVASTATIN 40 MG TABLET PO SCH (21:53)
[2020-02-20] MEDS: LATANOPROST 0.005% OPH SOLN 2.5 ML OU SCH (21:57)
[2020-02-21] MEDS: IPRATROPIUM/ALBUTEROL 0.5-2.5 MG/3 ML AMPUL NEB SCH ×3 (03:00→14:32)
[2020-02-21] MEDS: MEROPENEM 1 GM in NORMAL SALINE 50 ML IV SCH ×2 (06:30→13:31)
[2020-02-21] MEDS: PANTOPRAZOLE SODIUM 40 MG TABLET.DR PO SCH (06:30)
[2020-02-21 07:41] VITALS: BP 131/59
[2020-02-21] MEDS: BUDESONIDE NEB 0.5 MG/2 ML AMPUL NEB SCH (08:48)
[2020-02-21] MEDS: PREDNISONE 10 MG TABLET PO SCH (11:17)
[2020-02-21] MEDS: FLUTICASONE/UMECLIDIN/VILANTER 100-62.5-25 MCG/DOSE IH SCH (11:17)
[2020-02-21] MEDS: CYANOCOBALAMIN (VITAMIN B-12) 1,000 MCG TABLET PO SCH (11:17)
[2020-02-21] MEDS: DOCUSATE SODIUM 100 MG CAPSULE PO SCH (11:17)
[2020-02-21] MEDS: CHOLECALCIFEROL (D3) 1,000 UNIT (25 MCG) TABLET PO SCH (11:17)
[2020-02-21] MEDS: FERROUS SULFATE 325 MG TABLET PO SCH (11:17)
[2020-02-21] MEDS: FAMOTIDINE INJ/PF 20 MG/2 ML SDV IV SCH (11:18)
[2020-02-21] MEDS: ENOXAPARIN SODIUM INJ 40 MG/0.4 ML DISP.SYRIN SUBCUT SCH (11:25)
[2020-02-21] MEDS: FUROSEMIDE 20 MG TABLET PO SCH (11:25)
[2020-02-21] MEDS ORDERED: NORMAL SALINE 10 ML SDV (AFTER EACH USE) IV PRN (11:30)
--- NOTE | 2020-02-21 11:39 | RADIOLOGY REPORT (SQ) ---
EXAM DESCRIPTION: PICC INSERTION IMAGES COMPLETED DATE/TIME: 02/21/2020 10:55 am REASON FOR STUDY: PICC line D46.4 REFRACTORY ANEMIA, UNSPECIFIED NEED for long-term antibiotics COMPARISON: None. FLUOROSCOPY TIME: 45 seconds of fluoroscopy was used. 1 images saved to PACS. TECHNIQUE: Fluoroscopic and ultrasound guided PICC placement. LIMITATIONS: None. PROCEDURE: After written consent and assessment were obtained, the patient was brought into the fluo roscopy room and placed supine on the table. Ultrasound evaluation of potential access sites were per formed. After successfully identifying a patent left basilic vein, the left arm was prepped and drape d in a sterile fashion along with the ultrasound probe. The entry site was anesthetized with 1% lidoc romero. A 21 gauge 7 cm needle was advanced through the skin and into the basilic vein under live ultra sound guidance. An ultrasound image was saved to PACS confirming access site. A .018 guide wire was then inserted through the needle and into the venous system. The needle was then removed and an 11 b lade scalpel was used to make a 1cm skin incision. A 5 fr peel-away sheath was advanced over the wir e and into the venous system. A measurement was then made using the existing wire and live fluoroscop ic guidance. The wire was then removed and trimmed. The PICC was advanced through the peel-away sheat h and into the venous system. The peel-away sheath was removed and the catheter was adhered to the pa tients arm with a stat lock. The catheter was then aspirated and flushed and a sterile bandage was pl aced over the access site. A fluoroscopic spot image was saved to PACS confirming the catheter tip w ithin the superior vena cava. IMPRESSION: SUCCESSFUL PLACEMENT OF A 5 FR DUAL LUMEN 41 CM PICC IN THE LEFT BASILIC VEIN. COMMENT: Patient medication list reviewed: Yes- Quality ID# [id number]:Eligible professional attests to doc umenting in the medical record they obtained, updated, or reviewed the patient's current medications. . Quality ID 145: Final reports for procedures using fluoroscopy that document radiation exposure lo vaishnavi, or exposure time and number of fluorographic images (if radiation exposure indices are not avail able) Quality ID #76: The patient was prepped and draped using maximum sterile barrier technique including cap, mask, sterile gown, sterile gloves, a large sterile sheet, hand hygiene, and 2% Chlorhexidine fo r cutaneous antisepsis. When ultrasound is used, sterile ultrasound techniques are followed requiring sterile gel and sterile probes. TECHNICAL DOCUMENTATION: JOB ID: [id number]- All Rights Reserved rev-07/16 Reading location - IP/workstation name: [email or web address] [id number]
[2020-02-21] MEDS ORDERED: NORMAL SALINE 10 ML SDV (SCHEDULED) IV SCH (22:00)
--- NOTE | 2020-02-23 18:42 | PDOC DISCHARGE SUMMARY ---
Impression - Admit/DC Date/PCP Admission Date/Primary Care Provider: 02/15/20 12:35 CRISTOBAL VI MCKEONP- Discharge Date: 02/22/20 - Discharge Diagnosis (1) E coli bacteremia Is this a current diagnosis for this admission?: Yes (2) Acute on chronic respiratory failure with hypoxia Is this a current diagnosis for this admission?: Yes (3) Chronic liver disease in patient with history of hepatocellular carcinoma Is this a current diagnosis for this admission?: Yes (4) Elevated troponin I level Is this a current diagnosis for this admission?: Yes (5) Emphysema of lung Is this a current diagnosis for this admission?: Yes (6) Emphysematous cholecystitis Is this a current diagnosis for this admission?: Yes (7) Pulmonary interstitial fibrosis Is this a current diagnosis for this admission?: Yes (8) Thrombocytopenia Is this a current diagnosis for this admission?: Yes (9) AAA (abdominal aortic aneurysm) Is this a current diagnosis for this admission?: Yes - Assessment Summary: (1) E coli bacteremia Is this a current diagnosis for this admission?: Yes Plan: ESBL Ecoli Bacteremia 2/2 UTI [I confirmed with [facility] yesterday that her UA grew ESBL Ecoli end of last month. Blood Cx negative at the time.]. Thats why her abx was switched to Nitrofurantoin outpatient this month. She was initially on ceftriaxone on admission but switched to meropenem on 02/16 after culture came back positive for ESBL. Repeat culture was initially negative but has popped up positive last night which is to be expected given when meropenem was started. I have placed repeat blood cultures today. PICC line ordered for outpatient ertapenem infusion I have placed discharge planning consult for ertapenem 1 g daily until 02/28/2020. (2) Acute on chronic respiratory failure with hypoxia Is this a current diagnosis for this admission?: Yes Plan: endorses that she did use about 5 L of oxygen at home but he has weaned it down to 3% because she is usually almost 100% on that. I have educated him on goal SPO2 being low 90s for patient not high. Avoid overoxygenation. Wean oxygen. (3) Chronic liver disease in patient with history of hepatocellular carcinoma Is this a current diagnosis for this admission?: Yes Plan: Has evidence of chronic liver disease possible cirrhosis including portosystemic varices, portal hypertension, thrombocytopenia. Will monitor. Caution with meds. Has had a few sessions of CyberKnife therapy at [facility]. She will continue to follow-up outpatient with her bicycle messenger. (4) Elevated troponin I level Is this a current diagnosis for this admission?: Yes Plan: Likely type II CO from demand ischemia from episode of hypoxia. EKG shows no new ischemic changes. Peaked at 0.2 then down trended. She denies any chest pain. (5) Emphysema of lung Qualifiers: Emphysema type: panlobular Qualified Code(s): J43.1 - Panlobular emphysema Is this a current diagnosis for this admission?: Yes Plan: DuoNebs. She is notably on Trelegy and low-dose prednisone at home. (6) Emphysematous cholecystitis Is this a current diagnosis for this admission?: Yes Plan: Dr. Ttutle has evaluated patient and discussed with radiologist and deemed that it would be difficult to place a cholecystostomy tube given narrow lumen of gallbladder. HIDA scan was done which was unremarkable. As such, Dr. Tuttle as recommended not to place cholecystostomy tube and is doubtful of an actual acute cholecystitis. (7) Pulmonary interstitial fibrosis Is this a current diagnosis for this admission?: Yes Plan: I have reviewed patient's CT image from last month at [facility] on PACS and it appears pretty much identical to her imaging on admission. I highly doubt that there is any overlying pneumonia. What I see in the imaging is simply a lot of emphysematous lungs and what appears to be chronic fibrotic lung changes. She will continue to follow-up with a university professor outpatient. Echo shows pulmonary hypertension. Continue oxygen. (8) Thrombocytopenia Is this a current diagnosis for this admission?: Yes Plan: Likely from chronic liver disease. Will monitor. (9) AAA (abdominal aortic aneurysm) Qualifiers: Presence of rupture: without rupture Qualified Code(s): I71.4 - Abdominal aortic aneurysm, without rupture Is this a current diagnosis for this admission?: Yes Plan: Size does not require intervention currently. Outpatient follow-up. - Additional Information Resuscitation Status: Full Code Discharge Diet: As Tolerated Discharge Activity: Activity As Tolerated Referrals: ALBERTA FINNEY FNP-C [NO LOCAL MD] - Follow up as needed Home Medications: Arformoterol Tartrate [Brovana Inhalation Solution 15 mcg/2 mL] 15 mcg NEB RTBID 02/15/20 Budesonide [Pulmicort] 0.5 mg NEB RTBID 02/15/20 Calcium Citrate/Vitamin D3 [Citracal-D3 200Mg-250 Unit Tab] 1 tab PO DAILY 02/15/20 Cholecalciferol (Vitamin D3) [Vitamin D3 1000 Unit Tablet] 1,000 units PO DAILY 02/15/20 Cyanocobalamin (Vitamin B-12) [Vitamin B12] 2,500 mcg PO DAILY 02/15/20 Diclofenac Sodium 2 gr TOP TIDP PRN 02/15/20 Ferrous Sulfate [Ferosul] 325 mg PO DAILY 02/15/20 Fluocinonide [Lidex-E 0.05% Cream 15 gm] 1 applic TOP BIDP PRN 02/15/20 Fluticasone/Umeclidin/Vilanter [Trelegy 100-62.5-25 Mcg Ellipta 14 Dose/Dpi] 1 puff IH DAILY 02/15/20 Latanoprost [Xalatan 0.005% Oph Soln 2.5 ml] 1 drop OU QHS 02/15/20 Lidocaine [Lidoderm 5% (700 mg) Transdermal Patch] 1 patch TD Q12HP PRN 02/15/20 Meclizine HCl 12.5 mg PO Q6HP PRN 02/15/20 Pantoprazole Sodium [Protonix] 40 mg PO DAILY 02/15/20 Prednisone 10 mg PO DAILY 02/15/20 Simvastatin [Zocor 40 mg Tablet] 40 mg PO QHS 02/15/20 History of Present Illiness History of Present Illness: NOLVIA SCRUGGS is a 79 year old female, with extensive medical history including hepatocellular cancer [undergoing CyberKnife procedures], cholecystitis last year, emphysema on home oxygen, who presents to the hospital for evaluation of chills shortness of breath. Patient started having the symptoms yesterday. She was noted by her to be hypoxic in the 70s to 80s on her nasal cannula. She was subsequently brought to the hospital. Her noted her having some rash on her thighs yesterday but seems to be gone this morning. Patient complained of some shortness of breath involving and pointed to her neck. In the ambulance, patient received mag, Solu-Medrol and placed on CPAP. In the ER, patient received antibiotics patient underwent imaging which revealed emphysematous cholecystitis. Notably she was on about 1.5 to 2 L nasal cannula during my encounter and stated that her shortness of breath had improved significantly. Has had multiple covid tests in past 2 months all negative last 3 weeks ago. Regarding her emphysematous cholecystitis, patient is having abdominal pain as well as chills. Last year, patient was noted to be having cholecystitis at [facility]. At that time, the try to take out her gallbladder but she had an episode on the surgical table as a result of which the cholecystectomy was forfieted. She subsequently underwent cholecystostomy tube placement and biliary stenting. These were later removed. However she never underwent c holecystectomy. Patient was seen in [facility] last month and was given antibiotics for several days. It is unclear what she was actually treated for with antibiotics but he did also note that she was later treated for C. difficile. They did several imaging and referred patient to [facility] for follow-up. At [facility] last month, they treated her for other issues but also noted her cholecystitis on imaging. tells me that they had considered placing a tube then but decided to hold off due to lack of symptoms. The also expresses to me that the family told him that patient was not a surgical candidate for cholecystectomy due to her comorbid medical/lung issues as well as thrombocytopenia. Hospital Course Hospital Course: Patient was initially started on ceftriaxone for E.coli bacteremia. Surgery was consulted for findings of emphysematous cholecystitis. Dr. Tuttle evaluated the patient and discussed with the radiologist and it was deemed that it would be difficult to place a cholecystostomy tube given narrow lumen of gallbladder. Blood culture later on grew ESBL hence antibiotic was switched to meropenem. She continued to improve and she was eventually discharged to complete ertapenem infusion at home with home health until February 28, 2020. She was to follow-up with her primary care physician. Physical Exam Vital Signs: Temp Pulse Resp BP Pulse Ox 97.9 F 84 16 131/59 H 94 02/21/20 10:00 02/21/20 14:00 02/21/20 08:48 02/21/20 07:28 02/21/20 08:48 Intake & Output 02/22/20 02/23/20 02/24/20 06:59 06:59 06:59 Intake Total 50 Balance 50 General appearance: PRESENT: no acute distress, cooperative Head exam: PRESENT: atraumatic, normocephalic Eye exam: PRESENT: EOMI, PERRLA Mouth exam: PRESENT: moist Neck exam: PRESENT: full ROM Respiratory exam: PRESENT: clear to auscultation laney, symmetrical, unlabored Cardiovascular exam: PRESENT: RRR, +S1, +S2 GI/Abdominal exam: PRESENT: normal bowel sounds, soft. ABSENT: rebound, tenderness Extremities exam: PRESENT: full ROM Musculoskeletal exam: PRESENT: full ROM Neurological exam: PRESENT: alert, oriented to person, oriented to place, oriented to time, oriented to situation Psychiatric exam: PRESENT: normal mood Skin exam: PRESENT: normal color Results Laboratory Results: WBC 6.1 10^3/uL (4.0-10.5) 02/17/20 08:50 RBC 3.67 10^6/uL (3.72-5.28) L 02/17/20 08:50 Hgb 11.0 g/dL (12.0-15.5) L 02/17/20 08:50 Hct 33.2 % (36.0-47.0) L 02/17/20 08:50 MCV 91 fl (80-97) 02/17/20 08:50 MCH 30.1 pg (27.0-33.4) 02/17/20 08:50 MCHC 33.3 g/dL (32.0-36.0) 02/17/20 08:50 RDW 18.2 % (11.5-14.0) H 02/17/20 08:50 Plt Count 79 10^3/uL (150-450) L 02/17/20 08:50 Lymph % (Auto) 10.5 % (13-45) L 02/17/20 08:50 Bay % (Auto) 5.5 % (3-13) 02/17/20 08:50 Eos % (Auto) 0.6 % (0-6) 02/17/20 08:50 Baso % (Auto) 0.5 % (0-2) 02/17/20 08:50 Absolute Neuts (auto) 5.1 10^3/uL (1.7-8.2) 02/17/20 08:50 Absolute Lymphs (auto) 0.6 10^3/uL (0.5-4.7) 02/17/20 08:50 Absolute Monos (auto) 0.3 10^3/uL (0.1-1.4) 02/17/20 08:50 Absolute Eos (auto) 0.0 10^3/uL (0.0-0.6) 02/17/20 08:50 Absolute Basos (auto) 0.0 10^3/uL (0.0-0.2) 02/17/20 08:50 Total Counted 100 02/16/20 06:09 Seg Neutrophils % 82.9 % (42-78) H 02/17/20 08:50 Seg Neuts % (Manual) 88 % (42-78) H 02/16/20 06:09 Lymphocytes % (Manual) 6 % (13-45) L 02/16/20 06:09 Atypical Lymphs % 1 % (0) 02/16/20 06:09 Monocytes % (Manual) 5 % (3-13) 02/16/20 06:09 Eosinophils % (Manual) 0 % (0-6) 02/16/20 06:09 Basophils % (Manual) 0 % (0-2) 02/16/20 06:09 Abs Neuts (Manual) 7.4 10^3/uL (1.7-8.2) 02/16/20 06:09 Abs Lymphs (Manual) 0.6 10^3/uL (0.5-4.7) 02/16/20 06:09 Abs Monocytes (Manual) 0.4 10^3/uL (0.1-1.4) 02/16/20 06:09 Absolute Eos (Manual) 0.0 10^3/uL (0.0-0.6) 02/16/20 06:09 Abs Basophils (Manual) 0.0 10^3/uL (0.0-0.2) 02/16/20 06:09 Platelet Comment DECREASED 02/16/20 06:09 Polychromasia SLIGHT 02/16/20 06:09 Anisocytosis 1+ 02/16/20 06:09 PT 14.8 SEC (11.4-15.4) 02/14/20 21:55 INR 1.13 02/14/20 21:55 Carbonic Acid 1.06 mmol/L (1.05-1.35) 02/14/20 23:27 HCO3/H2CO3 Ratio 21:1 02/14/20 23:27 ABG pH 7.42 (7.35-7.45) 02/14/20 23:27 ABG pCO2 35.3 mmHg (35-45) 02/14/20 23:27 ABG pO2 84.7 mmHg (80-100) 02/14/20 23:27 ABG HCO3 22.4 mmol/L (20-24) 02/14/20 23:27 ABG Total CO2 23.5 mmol/L (21-25) 02/14/20 23:27 ABG O2 Saturation 96.6 % (94-98) 02/14/20 23:27 ABG Base Excess -1.6 mmol/L 02/14/20 23:27 VBG pH 7.34 (7.30-7.42) 02/14/20 21:55 VBG pCO2 46.0 mmHg (35-63) 02/14/20 21:55 VBG HCO3 24.0 mmol/L (20-32) 02/14/20 21:55 VBG Base Excess -1.9 mmol/L 02/14/20 21:55 FiO2 30% 02/14/20 23:27 Sodium 139.2 mmol/L (137-145) 02/17/20 08:50 Potassium 4.1 mmol/L (3.6-5.0) 02/17/20 08:50 Chloride 106 mmol/L (98-107) 02/17/20 08:50 Carbon Dioxide 24 mmol/L (22-30) 02/17/20 08:50 Anion Gap 9 (5-19) 02/17/20 08:50 BUN 19 mg/dL (7-20) 02/17/20 08:50 Creatinine 0.57 mg/dL (0.52-1.25) 02/17/20 08:50 Est GFR ( Amer) > 60 (>60) 02/17/20 08:50 Est GFR (MDRD) Non-Af > 60 (>60) 02/17/20 08:50 Glucose 150 mg/dL (75-110) H 02/17/20 08:50 Lactic Acid 2.1 mmol/L (0.7-2.1) 02/15/20 07:44 Calcium 9.0 mg/dL (8.4-10.2) 02/17/20 08:50 Total Bilirubin 0.5 mg/dL (0.2-1.3) 02/16/20 06:09 Direct Bilirubin 0.2 mg/dL (0.0-0.4) 02/16/20 06:09 Neonat Total Bilirubin Not Reportable 02/16/20 06:09 Neonat Direct Bilirubin Not Reportable 02/16/20 06:09 Neonat Indirect Bili Not Reportable 02/16/20 06:09 AST 22 U/L (14-36) 02/16/20 06:09 ALT 12 U/L (<35) 02/16/20 06:09 Alkaline Phosphatase 89 U/L (38-126) 02/16/20 06:09 Troponin I 0.174 ng/mL 02/15/20 08:55 NT-Pro-B Natriuret Pep 756 pg/mL (<450) H 02/15/20 04:22 Total Protein 7.0 g/dL (6.3-8.2) 02/16/20 06:09 Albumin 3.4 g/dL (3.5-5.0) L 02/16/20 06:09 Urine Color STRAW 02/14/20 22:38 Urine Appearance CLEAR 02/14/20 22:38 Urine pH 5.0 (5.0-9.0) 02/14/20 22:38 Ur Specific [place] 1.013 02/14/20 22:38 Urine Protein NEGATIVE mg/dL (NEGATIVE) 02/14/20 22:38 Urine Glucose (UA) NEGATIVE mg/dL (NEGATIVE) 02/14/20 22:38 Urine Ketones NEGATIVE mg/dL (NEGATIVE) 02/14/20 22:38 Urine Blood NEGATIVE (NEGATIVE) 02/14/20 22:38 Urine Nitrite (Reflex) NEGATIVE (NEGATIVE) 02/14/20 22:38 Urine Bilirubin NEGATIVE (NEGATIVE) 02/14/20 22:38 Urine Urobilinogen NEGATIVE mg/dL (<2.0) 02/14/20 22:38 Leukocyte Esterase Rfl NEGATIVE (NEGATIVE) 02/14/20 22:38 Urine RBC (Auto) 1 /HPF 02/14/20 22:38 Urine Bacteria (Auto) TRACE /HPF 02/14/20 22:38 Urine WBC (Reflex) 5 /HPF 02/14/20 22:38 Squamous Epi Cells Auto <1 /HPF 02/14/20 22:38 Urine Ascorbic Acid NEGATIVE (NEGATIVE) 02/14/20 22:38 Influenza A (RT-PCR) NEGATIVE (NEGATIVE) 02/15/20 12:02 Influenza B (RT-PCR) NEGATIVE (NEGATIVE) 02/15/20 12:02 RSV (RT-PCR) NEGATIVE (NEGATIVE) 02/15/20 12:02 SARS-CoV-2 Rap RNA(RT-PCR) NEGATIVE (NEGATIVE) 02/15/20 12:02 02/14/20 02/15/20 02/15/20 21:55 04:22 04:22 Troponin I 0.019 0.203 NT-Pro-B Natriuret Pep 756 H 02/15/20 08:55 Troponin I 0.174 NT-Pro-B Natriuret Pep Impressions: Chest X-Ray 02/14/20 22:03 IMPRESSION: Bilateral interstitial opacities consistent with edema or atypical pneumonia with small right pleural effusion. Chest/Abdomen CTA 02/15/20 00:23 IMPRESSION: 1. No evidence of pulmonary embolus. 2. Very small right pleural effusion with findings favored to represent chronic underlying interstitial lung disease in the lung bases although cannot exclude component of mild edema. 3. Emphysema. 4. Changes of cirrhosis and splenomegaly partially imaged in the upper abdomen. 5. Abnormal appearance of a partially imaged gallbladder, consider ultrasound follow-up. 6. Partially imaged air and fluid collection along the caudate lobe of the liver. While this could represent a loop of bowel in an unusual location, abscess is of concern. Would recommend follow-up CT of the abdomen and pelvis ideally with contrast to better evaluate. Abdomen/Pelvis CT 02/15/20 03:27 IMPRESSION: 1. Abnormal gallbladder, suspicious for acute cholecystitis. The air raises concern for emphysematous cholecystitis. 2. Large duodenal diverticulum, but no associated acute inflammatory changes. (Questionable fluid collection on CTA chest corresponds to fluid in the duodenum) 3. Varices, consistent with portal hypertension 4. 4 cm distal abdominal aortic aneurysm. Recommend follow-up every 12 months and vascular consultation. Hepatobiliary Scan Nuclear Medicine 02/16/20 00:00 IMPRESSION: No evidence of cystic or common duct obstruction. PICC Line Insertion 02/21/20 00:00 IMPRESSION: SUCCESSFUL PLACEMENT OF A 5 FR DUAL LUMEN 41 CM PICC IN THE LEFT BASILIC VEIN. Plan Plan of Treatment: ` To complete ertapenem treatment for ESBL at home. Patient was discharged with a PICC line and home health to administer the antibiotics until February 01, 2020. Stroke Is this a Stroke Patient?: No Acute Heart Failure Is this a Heart Failure Patient?: No
== END 2020-02-21 15:45 | disposition home health service (06) | DRG 189 ==
LOC: ER 21:49 → EH 02-15 11:45 → INTOOBSV 02-15 11:45 → OBSVTOIN 02-15 12:35 → 3S 02-15 14:57 → 4S 02-17 11:03
PROVIDERS: ADMIT Internal Medicine; ATTEND Internal Medicine
PROC: 02HV33Z Insertion of Infusion Device into Superior Vena Cava, Percutaneous Approach (ICD-10-PCS; principal; 2020-02-21)
PROC: B548ZZA Ultrasonography of Superior Vena Cava, Guidance (ICD-10-PCS; 2020-02-21)
DX: J96.21 Acute and chronic respiratory failure with hypoxia (principal); I71.02 Dissection of abdominal aorta; I21.A1 Myocardial infarction type 2; R78.81 Bacteremia; C22.0 Liver cell carcinoma; Z16.12 Extended spectrum beta lactamase (ESBL) resistance; J84.10 Pulmonary fibrosis, unspecified; D69.59 Other secondary thrombocytopenia; J43.1 Panlobular emphysema; B96.20 Unspecified Escherichia coli [E. coli] as the cause of diseases classified elsewhere; Z88.8 Allergy status to other drugs, medicaments and biological substances; Z99.81 Dependence on supplemental oxygen; Z92.3 Personal history of irradiation; Z79.899 Other long term (current) drug therapy; Z20.828 Contact with and (suspected) exposure to other viral communicable diseases; Z87.891 Personal history of nicotine dependence
CPT/HCPCS: 36415; 36573; 51702; 71045; 71275; 74177; 78226; 80048; 80053; 81001; 82803; 83605; 83880; 84484; 85025; 85610; 87040; 87077; 87150; 87186; 93005; 93010; 93306; 94640; 96365; 96367; 96375; 99285; 0241U; A9537; C9803; J0456; J0696; J1642; J1940; J2185; J2920; J3490; J7042; J7512; Q9969; S0028

== ENCOUNTER 2020-02-24 01:53 | Emergency (ER) | payer MEDICARE ==
[2020-02-24 05:10] VITALS: BP 129/58
== END 2020-02-24 05:46 | disposition left against medical advice (07) ==
LOC: ER 01:53
DX: T82.9XXA Unspecified complication of cardiac and vascular prosthetic device, implant and graft, initial encounter (principal); X58.XXXA Exposure to other specified factors, initial encounter